=== PATIENT | female | born 1990 | race Caucasian/White ===

== ENCOUNTER → 2017-06-15 | Outpatient (CLI) | payer MEDICAID, SELFPAY | PROVIDERS: Visit Provider Nurse Practitioner Family | DX: E03.9 Hypothyroidism, unspecified (principal); E55.9 Vitamin D deficiency, unspecified | CPT/HCPCS: 36415; 80053; 82306; 84443; 85025 ==

== ENCOUNTER → 2017-12-13 07:43 | Outpatient (CLI) | payer MEDICAID, SELFPAY ==
[2017-12-13 10:58] LABS: Alanine Aminotransferase 21 U/L (12-78); Albumin Level 3.6 gm/dL (3.4-5.0); Alkaline Phosphatase 81 U/L (46-116); Anion Gap 10.3 mEq/L (5-15); Aspartate Amino Transferase 21 U/L (15-37); Bilirubin,Total 0.3 mg/dL (0.2-1.0); Blood Urea Nitrogen 9 mg/dL (7-18); Calcium 8.4 mg/dL (8.5-10.1); Carbon Dioxide 28 mmol/L (21.0-32.0); Chloride 107 mmol/L (98-107); Chol/HDL Ratio 3.7 (1-3.5); Cholesterol 183 mg/dL (140-200); Creatinine,Serum 0.72 mg/dL (0.55-1.02); Estimated Glomerular Filt Rate 96 ml/min (>60); Free T4 (Free Thyroxine) 1.13 ng/dl (0.76-1.46); GFR (African American) 116 ML/MIN (>60); Globulin 3.7 gm/dl (1.3-3.2); Glucose 96 mg/dL (74-106); HDL Cholesterol 49 mg/dL (29-89); LDL Cholesterol 97 mg/dL (0-130); Potassium 4.3 mmoL/L (3.5-5.1); Sodium 141 mmol/L (136-145); Total Protein,Serum 7.3 gm/dL (6.4-8.2); Triglycerides 185 mg/dL (30-200); VLDL Cholesterol 37 mg/dL (0-40)
[2017-12-14 13:57] LABS: Vitamin D 25 Hydroxy 50.4 ng/mL (30.0-100.0)
== END ==
PROVIDERS: Visit Provider Internal Medicine Adolescent Medicine
DX: E03.9 Hypothyroidism, unspecified (principal); E55.9 Vitamin D deficiency, unspecified; Z86.39 Personal history of other endocrine, nutritional and metabolic disease
CPT/HCPCS: 36415; 80053; 80061; 82652; 84439; 84443

== ENCOUNTER → 2018-08-20 16:16 | Outpatient (CLI) | payer OTHER, MEDICAID, SELFPAY ==
[2018-08-20 17:41] LABS: Thyroid Stimulating Hormone 2.13 uIU/ml (0.358-3.740)
[2018-08-22 14:39] LABS: Vitamin D 25 Hydroxy 23.4 ng/mL (30.0-100.0)
== END ==
PROVIDERS: Visit Provider Nurse Practitioner Family
DX: E03.9 Hypothyroidism, unspecified (principal); E55.9 Vitamin D deficiency, unspecified
CPT/HCPCS: 36415; 82652; 84443

== ENCOUNTER → 2018-11-17 10:17 | Outpatient (CLI) | payer OTHER, MEDICAID, SELFPAY ==
--- NOTE | 2018-11-17 10:33 | XR_ITS ---
XR knee RT 3V HISTORY: ITS.REASON: pain ORDERING PHYSICIAN: Devin Beckett MD PATIENT AGE: 28 years COMPARISON: None FINDINGS: No fracture or dislocation. No lytic or blastic change. Normal mineralization. No significant arthritic changes evident. No other significant findings IMPRESSION: Negative Knee
== END ==
PROVIDERS: PCP Nurse Practitioner Family; Visit Provider Internal Medicine Adolescent Medicine
DX: M25.561 Pain in right knee (principal)
CPT/HCPCS: 73562

== ENCOUNTER → 2019-02-13 09:48 | Outpatient (CLI) | payer OTHER, MEDICAID, SELFPAY ==
[2019-02-13 10:23] LABS: Basophils # 0.1 K/mm3 (0-0.2); Basophils % 0.9 % (0.1-2.0); Eosinophils # 0.2 K/mm3 (0.0-0.4); Eosinophils % 2.8 % (0.1-12.0); Hematocrit 36.2 % (37.0-47.0); Hemoglobin 11.7 g/dL (12.2-16.2); Lymphocytes # 1.6 K/mm3 (0.7-4.5); Lymphocytes % 28.6 % (10-50); Mean Corpuscular HGB Conc 32.3 g/dL (31.8-35.4); Mean Corpuscular Hemoglobin 25.7 pg (27.0-31.2); Mean Corpuscular Volume 79.6 fl (81-99); Mean Platelet Volume 7.7 fl (7.4-10.4); Monocytes # 0.3 K/mm3 (0.1-1.0); Neutrophils # 3.4 K/mm3 (1.8-7.8); Neutrophils % 61.8 % (37.0-80.0); Platelet Count 225 K/mm3 (142-424); Red Blood Count 4.55 M/mm3 (4.20-5.40); Red Cell Distribution Width 15.5 % (11.5-17.5); White Blood Count 5.4 K/mm3 (4.8-10.8)
[2019-02-13 12:35] LABS: Alanine Aminotransferase 19 U/L (12-78); Albumin Level 3.4 gm/dL (3.4-5.0); Alkaline Phosphatase 86 U/L (46-116); Anion Gap 11.6 mEq/L (5-15); Aspartate Amino Transferase 16 U/L (15-37); Bilirubin,Total 0.3 mg/dL (0.2-1.0); Blood Urea Nitrogen 9 mg/dL (7-18); Calcium 8.6 mg/dL (8.5-10.1); Carbon Dioxide 27 mmol/L (21.0-32.0); Chloride 104 mmol/L (98-107); Chol/HDL Ratio 4.3 (1-3.5); Cholesterol 166 mg/dL (140-200); Creatinine,Serum 0.77 mg/dL (0.55-1.02); Estimated Glomerular Filt Rate 87 ml/min (>60); Free T4 (Free Thyroxine) 1.09 ng/dl (0.76-1.46); GFR (African American) 106 ML/MIN (>60); Globulin 3.5 gm/dl (1.3-3.2); Glucose 85 mg/dL (74-106); HDL Cholesterol 39 mg/dL (29-89); LDL Cholesterol 69 mg/dL (0-130); Potassium 4.6 mmoL/L (3.5-5.1); Sodium 138 mmol/L (136-145); Thyroid Stimulating Hormone 4.74 uIU/ml (0.358-3.740); Total Protein,Serum 6.9 gm/dL (6.4-8.2); Triglycerides 290 mg/dL (30-200); VLDL Cholesterol 58 mg/dL (0-40)
[2019-02-14 12:37] LABS: Vitamin B12 463 pg/mL (232-1245); Vitamin D 25 Hydroxy 34.4 ng/mL (30.0-100.0)
== END ==
PROVIDERS: Visit Provider Nurse Practitioner Family
DX: E03.9 Hypothyroidism, unspecified (principal); E78.1 Pure hyperglyceridemia; E55.9 Vitamin D deficiency, unspecified; R42 Dizziness and giddiness
CPT/HCPCS: 36415; 80053; 80061; 82607; 82652; 84439; 84443; 85025

== ENCOUNTER → 2019-05-24 09:55 | Outpatient (CLI) | payer OTHER, SELFPAY ==
[2019-05-24 10:46] LABS: Basophils # 0.1 K/mm3 (0-0.2); Basophils % 1.1 % (0.1-2.0); Eosinophils # 0.2 K/mm3 (0.0-0.4); Eosinophils % 2.7 % (0.1-12.0); Hematocrit 40.1 % (37.0-47.0); Hemoglobin 13.1 g/dL (12.2-16.2); Lymphocytes # 1.8 K/mm3 (0.7-4.5); Lymphocytes % 28.3 % (10-50); Mean Corpuscular HGB Conc 32.7 g/dL (31.8-35.4); Mean Corpuscular Hemoglobin 26.9 pg (27.0-31.2); Mean Corpuscular Volume 82.3 fl (81-99); Mean Platelet Volume 8.6 fl (7.4-10.4); Monocytes # 0.3 K/mm3 (0.1-1.0); Monocytes % 4.5 % (1.7-9.3); Neutrophils # 4.1 K/mm3 (1.8-7.8); Neutrophils % 63.4 % (37.0-80.0); Platelet Count 205 K/mm3 (142-424); Red Blood Count 4.87 M/mm3 (4.20-5.40); Red Cell Distribution Width 14.3 % (11.5-17.5); White Blood Count 6.5 K/mm3 (4.8-10.8)
[2019-05-24 11:40] LABS: Free T4 (Free Thyroxine) 1.08 ng/dl (0.76-1.46); Thyroid Stimulating Hormone 2.47 uIU/ml (0.358-3.740)
== END ==
PROVIDERS: Visit Provider Nurse Practitioner Family
DX: E03.9 Hypothyroidism, unspecified (principal); D50.9 Iron deficiency anemia, unspecified
CPT/HCPCS: 36415; 84439; 84443; 85025

== ENCOUNTER → 2019-10-21 09:31 | Outpatient (CLI) | payer OTHER, SELFPAY ==
[2019-10-21 11:53] LABS: HCG,Quantitative 225 mIU/ml (0-5.42)
== END ==
PROVIDERS: Visit Provider Nurse Practitioner Obstetrics & Gynecology
DX: N92.6 Irregular menstruation, unspecified (principal)
CPT/HCPCS: 36415; 84702

== ENCOUNTER → 2019-11-04 09:47 | Outpatient (CLI) | payer OTHER, SELFPAY ==
[2019-11-04 11:49] LABS: HCG,Quantitative 18817 mIU/ml (0-5.42)
== END ==
PROVIDERS: Visit Provider Nurse Practitioner Obstetrics & Gynecology
DX: Z32.00 Encounter for pregnancy test, result unknown (principal)
CPT/HCPCS: 36415; 84702

== ENCOUNTER → 2019-11-19 15:25 | Outpatient (CLI) | payer OTHER, SELFPAY ==
[2019-11-19 16:09] LABS: Basophils % 0.3 % (0.1-2.0); Eosinophils # 0.1 K/mm3 (0.0-0.4); Eosinophils % 1.7 % (0.1-12.0); Hematocrit 38.2 % (37.0-47.0); Hemoglobin 13.4 g/dL (12.2-16.2); Lymphocytes # 1.7 K/mm3 (0.7-4.5); Lymphocytes % 19.8 % (10-50); Mean Corpuscular Volume 85.8 fl (81-99); Monocytes # 0.4 K/mm3 (0.1-1.0); Monocytes % 4.2 % (1.7-9.3); Neutrophils # 6.3 K/mm3 (1.8-7.8); Platelet Count 205 K/mm3 (142-424); Red Blood Count 4.45 M/mm3 (4.20-5.40); Red Cell Distribution Width 13.7 % (11.5-17.5); White Blood Count 8.5 K/mm3 (4.8-10.8)
[2019-11-21 09:59] LABS: HIV Screen 4th Generation wRfx Non Reactive (Non Reactive); Hepatitis B Surface Antigen Negative (Negative); Hepatitis C Antibody 0.1 s/co ratio (0.0-0.9); Rubella Antibodies, IgG 4.14 index (Immune >0.99)
[2019-11-21 10:47] LABS: Rapid Plasma Reagin Ab Titer Non Reactive (NonRea<1:1)
== END ==
PROVIDERS: Visit Provider Nurse Practitioner Obstetrics & Gynecology
DX: Z34.90 Encounter for supervision of normal pregnancy, unspecified, unspecified trimester (principal); E03.9 Hypothyroidism, unspecified; K21.9 Gastro-esophageal reflux disease without esophagitis
CPT/HCPCS: 36415; 85025; 86592; 86703; 86762; 86850; 87340; 87380; G0432

== ENCOUNTER → 2019-11-22 14:29 | Outpatient (CLI) | payer OTHER, SELFPAY ==
--- NOTE | 2019-11-22 14:29 | US_ITS ---
PROCEDURE: US OB TRANSVAGINAL CLINICAL INDICATION: for dates Evaluate early gestational age, spotting COMPARISON: PTV US PELVIS-TRANSVAGINAL ONLY from 03/07/2014 FINDINGS: An intrauterine gestational sac is present with a pole with a crown-rump length of 2.09cm correlating to gestational age of 8weeks 5days. heart tones are present with an FHR of 179bpm. Yolk sac is noted. The adnexa have an unremarkable appearance. The amnion and chorion have not yet fused IMPRESSION: Live IUP at 8 weeks 5 days Estimated due date by Ultrasound is 06/28/2020 Dictated by: Gumaro Arambula MD 11/22/2019 17:06 Electronically signed by Gumaro Arambula MD in [place] 11/22/2019 17:06
== END ==
LOC: RAD 14:29
PROVIDERS: PCP Nurse Practitioner Family; Visit Provider Nurse Practitioner Obstetrics & Gynecology
DX: Z34.90 Encounter for supervision of normal pregnancy, unspecified, unspecified trimester (principal)
CPT/HCPCS: 76817

== ENCOUNTER 2019-12-25 15:06 | Emergency (ER) | payer OTHER, SELFPAY ==
[2019-12-25 15:21] VITALS: BP 141/98; PULSE 106; RESP 20; TEMP 36.6; O2SAT 100; BMI 35.4
--- NOTE | 2019-12-25 15:29 | HMH.EDUTC ---
[facility] Disposition Clinical Impression: Sinusitis Qualifiers: Sinusitis location: unspecified location Chronicity: acute Recurrence: non-recurrent Qualified Code(s): J01.90 - Acute sinusitis, unspecified Qualifiers: Weeks of gestation: 14 weeks Qualified Code(s): Z3A.14 - 14 weeks gestation of Disposition: Home, Self-Care Condition on Discharge: Good Instructions: Sinusitis, Diet, DI for Sinusitis Additional Instructions: Drink plenty of fluids. Take tylenol for pain or fever. Take the medications as directed. Follow up with your regular doctor. GO TO THE ER FOR ANY WORSENING SYMPTOMS Follow up with your ob doctor. Prescriptions: Azithromycin [Z-Eduardo 250mg Tab*] 250 mg PO UD DOSE PK #6 tab [facility] Referrals: Dona Baez APRN [Primary Care Provider] - Forms: Work/School Release Time of Disposition: 15:34 Medical Decision Making - Medical Records Medical records reviewed: No: I reviewed the patient's medical records. - Rolando Inquiry Pt receiving controlled substance: No Vital Signs: 12/25/19 15:21 12/25/19 16:02 Temperature 97.9 F 98.2 F Temperature Source Oral Oral Pulse Rate 98 H Pulse Rate [Left Brachial] 106 H Respiratory Rate 20 16 Blood Pressure 140/70 Blood Pressure [Left Arm] 141/98 H Blood Pressure Mean [Left Arm] 112 Blood Pressure Source Automatic Cuff Blood Pressure Source [Left Arm] Automatic Cuff Blood Pressure Position Sitting Blood Pressure Position [Left Arm] Sitting 02 Sat by Pulse Oximetry 100 Oxygen Delivery Method Room Air [facility] HPI - General Stated complaint: possible sinus infection 14 weeks Time Seen by Provider: 12/25/19 15:29 HEENT Symptoms (Recalled from RN notes): Yes Resp Symptoms (Recalled from RN notes): Yes Skin Symptoms (Recalled from RN notes): No MS Symptoms (Recalled from RN notes): No Functional Status (Recalled from RN notes): NA - History of Present Illness Provider Complaint: She c/o sinus congestion, sinus pressure, bilateral ear pain for the past 6 days. She denies any fever or chills. She is 14 weeks . - Related Data Home Medications Medication Instructions Recorded Confirmed omeprazole 20 mg capsule,delayed 20 mg PO ONCE 08/24/17 12/16/19 release levothyroxine 100 mcg tablet PO 11/18/19 12/16/19 meloxicam 7.5 mg tablet PO 11/18/19 12/16/19 prenat.vits,dulce,nlv-kbvz-apcmw 1 tab PO DAILY 11/18/19 12/16/19 triamcinolone acetonide 0.1 % TOPICAL 11/18/19 12/16/19 topical cream Previous Rx's Medication Instructions Recorded Azithromycin [Z-Eduardo 250mg Tab*] 250 mg PO UD DOSE PK #6 tab 12/25/19 Allergies Allergy/AdvReac Type Severity Reaction Status Date / Time oxycodone [From Percocet] Allergy Intermediate I-ITCHING Verified 12/16/19 15:19 - Worker's Comp Is this a Worker's Comp case?: No Is this an [facility] Worker's Comp?: No Is this a [place] Worker's Comp?: No [facility] History - Hepatitis A Screen Drug use history?: No High risk sexual behaviors?: No History of sexually transmitted infection?: No Currently employed?: No Childcare worker?: No Do you have indoor plumbing?: Yes Do you have electricity?: Yes Attestation statement:: This patient has been screened for Hepatitis A risk factors. I have reviewed the patient's past medical history: Yes Medical History: Reports:: Gastroesophageal Reflux Disease(GERD) Other Medical History: Reports: Hypothyroidism, Thyroid Disease, Other Comment: PCOS. GERD. HYPOTHYROIDISM Other Surgeries: Yes: Cholecystectomy Amputation: No Fractures: No Comment: BREAST REDUCTION--2003. WISDOM TEETH REMOVAL--2011. LAP. CHOLY--2014 - Social History Smoking Status: Never smoker Alcohol Intake: never Alcohol Intake Frequency:: other Substance Use Type: denies use Occupational Status: employed Family Hx:: Cancer, Diabetes, Hypertension, Coronary Artery Diseas
[2019-12-25 16:02] VITALS: BP 140/70; PULSE 98; RESP 16; TEMP 36.8; O2SAT 98
== END 2019-12-25 16:03 | disposition home or self-care (01) ==
PROVIDERS: Emergency Provider Nurse Practitioner Family; PCP Nurse Practitioner Family
DX: J01.90 Acute sinusitis, unspecified (principal); Z3A.14 14 weeks gestation of pregnancy; K21.9 Gastro-esophageal reflux disease without esophagitis; Z88.5 Allergy status to narcotic agent
CPT/HCPCS: 99201

== ENCOUNTER → 2020-01-21 15:02 | Outpatient (CLI) | payer OTHER, SELFPAY ==
[2020-01-21 15:51] LABS: Chloride 104 mmol/L (98-107); Potassium 3.4 mmoL/L (3.5-5.1); Sodium 137 mmol/L (136-145)
[2020-01-21 15:53] LABS: Blood Urea Nitrogen 7 mg/dl (7-17); Estimated Glomerular Filt Rate 144 ml/min (>60); GFR (African American) 174 ML/MIN (>60)
[2020-01-21 15:54] LABS: Alanine Aminotransferase 12 U/L (12-78); Albumin Level 3.4 g/dl (3.5-5.0); Albumin/Globulin Ratio 1.1 (1.1-1.8); Alkaline Phosphatase 86 U/L (38-126); Anion Gap 12.4 mEq/L (5-15); Aspartate Amino Transferase 19 U/L (14-36); Bilirubin,Total 0.3 mg/dl (0.2-1.3); Calcium 9.1 mg/dl (8.4-10.2); Carbon Dioxide 24 mmol/L (22.0-30.0); Chol/HDL Ratio 2.5 (1-3.5); Cholesterol 183 mg/dl (140-200); Glucose 92 mg/dl (74-100); HDL Cholesterol 72 mg/dl (40-60); Total Protein,Serum 6.4 g/dl (6.3-8.2); Triglycerides 299 mg/dl (30-150); VLDL Cholesterol 60 mg/dL (0-40)
[2020-01-21 16:05] LABS: Direct LDL Cholesterol 83.71 mg/dL (100-129)
[2020-01-21 16:14] LABS: 25-OH Vitamin D, Total 31.6 ng/mL (30-100); Free Thyroxine Index 3.3 ug/dL (5.93-13.13); T4 (Thyroxine) 16.5 ug/dl (5.53-11.0); Triiodothryronine (T3) Uptake 20 % (23.5-40.5)
[2020-01-21 16:21] LABS: Basophils % 0.3 % (0.1-2.0); Eosinophils # 0.2 K/mm3 (0.0-0.4); Eosinophils % 2.1 % (0.1-12.0); Hematocrit 35.9 % (37.0-47.0); Hemoglobin 12.6 g/dL (12.2-16.2); Lymphocytes # 1.7 K/mm3 (0.7-4.5); Lymphocytes % 17.5 % (10-50); Mean Corpuscular HGB Conc 35.1 g/dL (31.8-35.4); Mean Corpuscular Hemoglobin 30.7 pg (27.0-31.2); Mean Corpuscular Volume 87.4 fl (81-99); Mean Platelet Volume 8.7 fl (7.4-10.4); Monocytes # 0.4 K/mm3 (0.1-1.0); Monocytes % 4.2 % (1.7-9.3); Neutrophils # 7.4 K/mm3 (1.8-7.8); Neutrophils % 75.8 % (37.0-80.0); Platelet Count 173 K/mm3 (142-424); Red Blood Count 4.11 M/mm3 (4.20-5.40); Red Cell Distribution Width 14.5 % (11.5-17.5); White Blood Count 9.8 K/mm3 (4.8-10.8)
[2020-01-21 16:27] LABS: Thyroid Stimulating Hormone 2.81 uIU/mL (0.465-4.68)
[2020-01-21 16:59] LABS: Hemoglobin A1C 5.1 % (4.0-6.0)
== END ==
PROVIDERS: Visit Provider Internal Medicine Adolescent Medicine
DX: E78.1 Pure hyperglyceridemia (principal); E66.9 Obesity, unspecified; E55.9 Vitamin D deficiency, unspecified; Z86.39 Personal history of other endocrine, nutritional and metabolic disease
CPT/HCPCS: 36415; 80053; 80061; 82306; 83036; 84436; 84443; 84479; 85025

== ENCOUNTER → 2020-02-11 10:31 | Outpatient (CLI) | payer OTHER, SELFPAY ==
--- NOTE | 2020-02-11 10:34 | US_ITS ---
PROCEDURE: US OB /MATERNAL DETAIL CLINICAL INDICATION: 20 week gestation Johan in the exam COMPARISON: US US OB TRANSVAGINAL from 11/22/2019 FINDINGS: There is a single live fetus which is in cephalic presentation. heart body motion noted. Cervix is closed and measures 4.5 cm transabdominal. The placenta is anterior and grade 1. No previa or abruption. Complete survey performed and was unremarkable on the submitted images as in PACS. No discrete anomalies identified on survey imaging by technologist. Active fetus. Three-vessel cord with satisfactory umbilical cord insertion. 4- chamber heart noted. Survey of brain & ventricles Unremarkable. Face and neck survey unremarkable. Diaphragm and chest views unremarkable. Abdomen: Both kidneys noted and unremarkable. Stomach noted and satisfactory. Spine: Survey of the spine satisfactory with no anomalies identified nor imaged. Both arms and legs noted. Amniotic Fluid: Adequate. Maternal adnexa: No significant findings. Measurements: Average ultrasound age 20weeks 3days. Gestational Age 20weeks 2days Estimated due date by ultrasound age 0106/27/2020. Estimated weight 348g BPD = 20weeks 3days OFD = 21weeks 4days HC = 20weeks 3days AC = 20weeks FL = 20weeks 6days Growth Percentile= 49Percent% Heart Rate = 132bpm Cerebellum = 20weeks 2days Humerus = 20weeks 5days HC/AC is 1.22 CI is 0.73 FL/BPD is 0.72 FL/AC is 0.23 IMPRESSION: Live IUP an average ultrasound age of 20 weeks and 3 days. All parameters correlate with no obvious anomalies. Please see above for detail Dictated by: Gumaro Arambula MD 02/12/2020 06:19 Gumaro Arambula MD in [place] 02/12/2020 06:19
== END ==
PROVIDERS: PCP Internal Medicine Adolescent Medicine; Visit Provider Nurse Practitioner Obstetrics & Gynecology
DX: Z3A.20 20 weeks gestation of pregnancy (principal)
CPT/HCPCS: 76811

== ENCOUNTER → 2020-03-16 16:50 | Outpatient (CLI) | payer OTHER, SELFPAY ==
[2020-03-16 17:02] LABS: Basophils % 0.4 % (0.1-2.0); Eosinophils # 0.5 K/mm3 (0.0-0.4); Eosinophils % 4.7 % (0.1-12.0); Hematocrit 35.9 % (37.0-47.0); Hemoglobin 11.7 g/dL (12.2-16.2); Lymphocytes # 1.6 K/mm3 (0.7-4.5); Lymphocytes % 15.2 % (10-50); Mean Corpuscular HGB Conc 32.7 g/dL (31.8-35.4); Mean Corpuscular Hemoglobin 29.7 pg (27.0-31.2); Mean Corpuscular Volume 90.8 fl (81-99); Mean Platelet Volume 7.9 fl (7.4-10.4); Monocytes # 0.4 K/mm3 (0.1-1.0); Monocytes % 4.2 % (1.7-9.3); Neutrophils # 7.8 K/mm3 (1.8-7.8); Neutrophils % 75.5 % (37.0-80.0); Platelet Count 195 K/mm3 (142-424); Red Blood Count 3.96 M/mm3 (4.20-5.40); Red Cell Distribution Width 13.7 % (11.5-17.5); White Blood Count 10.3 K/mm3 (4.8-10.8)
[2020-03-16 17:46] LABS: Chloride 106 mmol/L (98-107); Potassium 4.1 mmoL/L (3.5-5.1); Sodium 138 mmol/L (136-145)
[2020-03-16 17:49] LABS: Blood Urea Nitrogen 10 mg/dl (7-17); Estimated Glomerular Filt Rate 116 ml/min (>60); GFR (African American) 140 ML/MIN (>60)
[2020-03-16 17:50] LABS: Anion Gap 12.1 mEq/L (5-15); Calcium 9.2 mg/dl (8.4-10.2); Carbon Dioxide 24 mmol/L (22.0-30.0); Glucose 111 mg/dl (74-100)
[2020-03-16 18:07] LABS: Free T4 (Free Thyroxine) 0.83 ng/dl (0.78-2.19)
== END ==
PROVIDERS: Visit Provider Nurse Practitioner Family
DX: E03.9 Hypothyroidism, unspecified (principal)
CPT/HCPCS: 36415; 80048; 84439; 84443; 85025

== ENCOUNTER → 2020-03-24 07:56 | Outpatient (CLI) | payer OTHER, SELFPAY ==
[2020-03-24 08:22] LABS: Glucose,Fasting 94 mg/dl (74-100)
[2020-03-24 21:05] LABS: Glucose 1 Hour 90 mg/dL (74-100)
== END ==
PROVIDERS: Visit Provider Nurse Practitioner Obstetrics & Gynecology
DX: Z34.90 Encounter for supervision of normal pregnancy, unspecified, unspecified trimester (principal)
CPT/HCPCS: 36415; 82951

== ENCOUNTER → 2020-04-14 15:51 | Outpatient (CLI) | payer OTHER, SELFPAY ==
[2020-04-14 16:04] LABS: Basophils % 0.2 % (0.1-2.0); Eosinophils # 0.2 K/mm3 (0.0-0.4); Eosinophils % 1.6 % (0.1-12.0); Hematocrit 33.6 % (37.0-47.0); Lymphocytes # 1.5 K/mm3 (0.7-4.5); Lymphocytes % 15.3 % (10-50); Mean Corpuscular HGB Conc 32.8 g/dL (31.8-35.4); Mean Corpuscular Volume 88.6 fl (81-99); Mean Platelet Volume 9.1 fl (7.4-10.4); Monocytes # 0.5 K/mm3 (0.1-1.0); Monocytes % 4.8 % (1.7-9.3); Neutrophils # 7.4 K/mm3 (1.8-7.8); Platelet Count 171 K/mm3 (142-424); Red Cell Distribution Width 14.3 % (11.5-17.5); White Blood Count 9.5 K/mm3 (4.8-10.8)
[2020-04-14 16:59] LABS: Chloride 106 mmol/L (98-107); Sodium 136 mmol/L (136-145)
[2020-04-14 17:00] LABS: Potassium 4.4 mmoL/L (3.5-5.1)
[2020-04-14 17:02] LABS: Blood Urea Nitrogen 9 mg/dl (7-17); Estimated Glomerular Filt Rate 97 ml/min (>60); GFR (African American) 117 ML/MIN (>60)
[2020-04-14 17:03] LABS: Anion Gap 11.4 mEq/L (5-15); Calcium 8.8 mg/dl (8.4-10.2); Carbon Dioxide 23 mmol/L (22.0-30.0); Glucose 71 mg/dl (74-100)
[2020-04-14 17:10] LABS: NT Pro Brain Natriuretic Pep. 63.8 pg/mL (0-125)
== END ==
PROVIDERS: Visit Provider Nurse Practitioner Obstetrics & Gynecology
DX: Z34.90 Encounter for supervision of normal pregnancy, unspecified, unspecified trimester (principal)
CPT/HCPCS: 36415; 80048; 83880; 85025

== ENCOUNTER → 2020-05-06 13:45 | Outpatient (CLI) | payer OTHER, SELFPAY ==
--- NOTE | 2020-05-06 13:45 | US_ITS ---
PROCEDURE: US OB /MATERNAL DETAIL CLINICAL INDICATION: LGA Large for gestational COMPARISON: US US OB /MATERNAL DETAIL from 02/11/2020 FINDINGS: There is a single live fetus present. Initially the fetus was in breech presentation but turned during the exam to B in cephalic presentation. The cervix is closed measuring 4.5 cm. There is an average amount of amniotic fluid with an INDRA of 14 cm. The placenta is anterior and grade 1. No evidence of previa or abruption. Biophysical profile is 8 of 8 Measurements: Average ultrasound age 32weeks 3days. Gestational Age 32weeks 3days Estimated due date by ultrasound age 0106/28/2020. Estimated weight 1,861g BPD = 33weeks 3days OFD = 32weeks 2days HC = 32weeks 4days AC = 31weeks 3days FL = 32weeks 1day Growth Percentile= 24Percent% Heart Rate = 143bpm HC/AC is 1.08 CI is 0.8 FL/BPD is 0.75 FL/AC is 0.23 IMPRESSION: Live IUP in cephalic presentation with an average ultrasound age of 32 weeks 3 days and an estimated weight 1861 g which is 24th percentile Normal amniotic fluid volume with an INDRA of 14 cm. Biophysical profile 8 of 8 Dictated by: Gumaro Arambula MD 05/07/2020 10:16 Gumaro Arambula MD in [place] 05/07/2020 10:16
== END ==
PROVIDERS: PCP Nurse Practitioner Family; Visit Provider Nurse Practitioner Obstetrics & Gynecology
DX: O36.60X0 Maternal care for excessive fetal growth, unspecified trimester, not applicable or unspecified (principal)
CPT/HCPCS: 76811; 76819

== ENCOUNTER → 2020-05-25 17:55 | Outpatient (CLI) | payer OTHER, SELFPAY ==
[2020-05-25 17:57] LABS: Microscopic, Urine URINE MICROSCOPIC (MICROSCOPIC)
[2020-05-25 18:51] LABS: Appearance,Urine CLEAR (Clear); Blood, Urine Negative (Negative); Color,Urine YELLOW (Yellow); Glucose,Urine (UA) Negative (Negative); Ketones,Urine TRACE (Negative); Leukocyte Esterase,Urine Negative (Negative); Nitrate,Urine Negative (Negative); PH,Urine 5.5 (5.0-8.5); Protein,Urine Negative (Negative); Specific Gravity, Urine >= 1.030 (1.005-1.030); Urobilinogen,Urine 0.2 EU/dl (0.2)
[2020-05-25 18:52] LABS: Bilirubin,Urine Negative (Negative)
[2020-05-25 19:28] LABS: Calcium Oxalate Crystals,Urine 2+ /lpf
== END ==
PROVIDERS: Visit Provider Nurse Practitioner Obstetrics & Gynecology
DX: Z34.90 Encounter for supervision of normal pregnancy, unspecified, unspecified trimester (principal)
CPT/HCPCS: 81001; 86403

== ENCOUNTER 2020-05-29 09:41 | Outpatient (CLI) | payer OTHER, SELFPAY ==
[2020-05-29 09:59] VITALS: BMI 38.0
[2020-05-29 10:24] LABS: Microscopic, Urine URINE MICROSCOPIC (MICROSCOPIC)
[2020-05-29 10:27] LABS: Appearance,Urine CLEAR (Clear); Bilirubin,Urine Negative (Negative); Blood, Urine Negative (Negative); Color,Urine YELLOW (Yellow); Glucose,Urine (UA) Negative (Negative); Ketones,Urine Negative (Negative); Leukocyte Esterase,Urine Negative (Negative); Nitrate,Urine Negative (Negative); PH,Urine 5.5 (5.0-8.5); Protein,Urine Negative (Negative); Specific Gravity, Urine >= 1.030 (1.005-1.030); Urobilinogen,Urine 0.2 EU/dl (0.2)
--- NOTE | 2020-05-29 10:31 | US_ITS ---
PROCEDURE: US OB BIOPHYSICAL PROFILE CLINICAL INDICATION: decreased movment TECHNIQUE: FINDINGS: The following parameters are obtained: Average ultrasound age is Average 35weeks 3days Estimated due date by ultrasound is 06/30/2020. Estimated weight is 2,708g. BPD 35 weeks 3 days, OFD 35 weeks 4 days, HC 35 weeks 0 days, AC 36 weeks 2 days, FL 34 weeks 5 days. Average ultrasound age is 35 weeks 3 days. The estimated weight is 2708 g which is 45th percentile. heart rate: 128bpm bpm. HC/AC: 0.97 Cephalic index: 0.8 FL/BPD: 0.77 FL/AC: 0.21 Amniotic fluid index: 13.01cm Qualitative AFV: 2 breathing movements: 2 Gross body movements: 2 Tone: 2 Biophysical profile score: 8 The cervix is closed measuring 5 cm transabdominal. Fetus is in cephalic presentation the placenta is anterior and grade 1 IMPRESSION: Live IUP at 35 weeks 3 days. Please see above for detail Dictated by: Gumaro Arambula MD 05/29/2020 14:02 Gumaro Arambula MD in [place] 05/29/2020 14:02
[2020-05-29 10:39] LABS: Amphetamine/Metha Screen,Urine Negative ng/ml (<1000); Barbiturates Screen,Urine Negative ng/ml (<200)
[2020-05-29 10:40] LABS: Benzodiazepines Screen,Urine Negative ng/ml (<200)
[2020-05-29 10:41] LABS: Cannabinoid Screen,Urine Negative ng/ml (<50); Cocaine Screen,Urine Negative ng/ml (<300)
[2020-05-29 10:42] LABS: Methadone Screen,Urine Negative ng/ml (<300); Opiate Screen,Urine Negative ng/ml (<300)
[2020-05-29 10:43] LABS: Phencyclidine Screen,Urine Negative ng/ml (<25)
[2020-05-29 10:45] LABS: RBC,Urine Occasional #/hpf (0-3); Squamous Epithelial Cell,Urine Occasional #/hpf (0-5)
[2020-05-29 10:55] VITALS: BP 136/88; PULSE 89; RESP 16; TEMP 36.7; O2SAT 96; BMI 38.0
== END 2020-05-29 11:10 | disposition home or self-care (01) ==
LOC: OBOUT 09:42 → OB 09:43
PROVIDERS: PCP Internal Medicine Adolescent Medicine; Visit Provider Nurse Practitioner Obstetrics & Gynecology
DX: O36.8130 Decreased fetal movements, third trimester, not applicable or unspecified (principal); Z3A.35 35 weeks gestation of pregnancy
CPT/HCPCS: 59025; 76816; 76819; 80305; 81001; G0463

== ENCOUNTER → 2020-06-01 17:45 | Outpatient (CLI) | payer OTHER, SELFPAY ==
[2020-06-01 17:48] LABS: Microscopic, Urine URINE MICROSCOPIC (MICROSCOPIC)
[2020-06-01 18:15] LABS: Appearance,Urine CLEAR (Clear); Bilirubin,Urine Negative (Negative); Blood, Urine Negative (Negative); Color,Urine YELLOW (Yellow); Glucose,Urine (UA) Negative (Negative); Ketones,Urine Negative (Negative); Leukocyte Esterase,Urine Negative (Negative); Nitrate,Urine Negative (Negative); Protein,Urine Negative (Negative); Specific Gravity, Urine >= 1.030 (1.005-1.030); Urobilinogen,Urine 0.2 EU/dl (0.2)
[2020-06-01 18:56] LABS: Bacteria,Urine 2+ /lpf
== END ==
LOC: LAB 17:46 → LAB.DROPOF 06-02 08:27
PROVIDERS: Visit Provider Nurse Practitioner Obstetrics & Gynecology
DX: Z34.90 Encounter for supervision of normal pregnancy, unspecified, unspecified trimester (principal)
CPT/HCPCS: 81001; 87086

== ENCOUNTER → 2020-06-09 15:00 | Outpatient (CLI) | payer OTHER, SELFPAY ==
--- NOTE | 2020-06-09 15:01 | US_ITS ---
PROCEDURE: US OB FOLLOW UP CLINICAL INDICATION: Check Positioning COMPARISON: US US OB BIOPHYSICAL PROFILE from 05/29/2020 FINDINGS: There is cephalic presentation of a single live fetus. Cervix appears closed and measures 5 cm in length. heart tones are present 140 beats per minute. Placenta is anterior. The INDRA is 14 cm. Average ultrasound age is 36 weeks 6 days. Estimated weight is 2980 g which is 39th percentile. Biophysical profile is 8 of 8. Measurements: Average ultrasound age 36weeks 6days. Gestational Age 36weeks 6days Estimated due date by ultrasound age 0107/01/2020. Estimated weight 2,980g BPD = 37weeks 2days OFD = 37 weeks 2 days HC = 36weeks 3days AC = 36weeks 2days FL = 37weeks 2days Growth Percentile= 36Percent% Heart Rate = 140bpm Cerebellum = Humerus = HC/AC is 1 CI is 0.82 FL/BPD is 0.79 FL/AC is 0.23 IMPRESSION: Live IUP in cephalic presentation at 36 weeks 6 days. Please see above for detail Biophysical profile 8 of 8 with an INDRA 14 cm Dictated by: Gumaro Arambula MD 06/09/2020 17:14 Gumaro Arambula MD in [place] 06/09/2020 17:14
== END ==
PROVIDERS: PCP Internal Medicine Adolescent Medicine; Visit Provider Nurse Practitioner Obstetrics & Gynecology
DX: Z36.89 Encounter for other specified antenatal screening (principal)
CPT/HCPCS: 76816; 76819

== ENCOUNTER 2020-06-19 12:45 | Inpatient (IN) | payer OTHER, SELFPAY ==
[2020-06-19 09:39] VITALS: BP 131/87; PULSE 88; RESP 18; TEMP 36.6; O2SAT 97; BMI 38.3
[2020-06-19 10:19] LABS: Microscopic, Urine URINE MICROSCOPIC (MICROSCOPIC)
[2020-06-19 10:37] LABS: Appearance,Urine CLEAR (Clear); Bilirubin,Urine Negative (Negative); Blood, Urine Negative (Negative); Color,Urine YELLOW (Yellow); Glucose,Urine (UA) Negative (Negative); Ketones,Urine Negative (Negative); Leukocyte Esterase,Urine Negative (Negative); Nitrate,Urine Negative (Negative); Protein,Urine Negative (Negative); Urobilinogen,Urine 0.2 EU/dl (0.2)
[2020-06-19 10:45] LABS: Bacteria,Urine 1+ /lpf
[2020-06-19 10:49] LABS: Benzodiazepines Screen,Urine Negative ng/ml (<200)
[2020-06-19 10:50] LABS: Amphetamine/Metha Screen,Urine Negative ng/ml (<1000); Barbiturates Screen,Urine Negative ng/ml (<200)
[2020-06-19 10:52] LABS: Cannabinoid Screen,Urine Negative ng/ml (<50)
[2020-06-19 10:53] LABS: Cocaine Screen,Urine Negative ng/ml (<300); Methadone Screen,Urine Negative ng/ml (<300)
[2020-06-19 10:54] LABS: Basophils % 0.4 % (0.1-2.0); Eosinophils # 0.1 K/mm3 (0.0-0.4); Eosinophils % 0.9 % (0.1-12.0); Hematocrit 39.7 % (37.0-47.0); Hemoglobin 13.6 g/dL (12.2-16.2); Lymphocytes # 1.2 K/mm3 (0.7-4.5); Mean Corpuscular HGB Conc 34.2 g/dL (31.8-35.4); Mean Corpuscular Hemoglobin 30.8 pg (27.0-31.2); Mean Platelet Volume 8.8 fl (7.4-10.4); Monocytes # 0.3 K/mm3 (0.1-1.0); Monocytes % 3.7 % (1.7-9.3); Neutrophils # 7.5 K/mm3 (1.8-7.8); Neutrophils % 81.9 % (37.0-80.0); Platelet Count 132 K/mm3 (142-424); Red Blood Count 4.41 M/mm3 (4.20-5.40); Red Cell Distribution Width 15.9 % (11.5-17.5); White Blood Count 9.1 K/mm3 (4.8-10.8)
[2020-06-19 10:54] LABS: Opiate Screen,Urine Negative ng/ml (<300)
[2020-06-19 10:55] LABS: Phencyclidine Screen,Urine Negative ng/ml (<25)
[2020-06-19 11:16] LABS: Coronavirus 19 IgG Antibody Negative (Negative); Coronavirus 19 IgM Antibody Negative (Negative)
[2020-06-19 13:01] VITALS: BP 135/84; PULSE 88; RESP 18; TEMP 36.4; O2SAT 98
--- NOTE | 2020-06-19 17:02 | HMH.OBAPHP ---
OB - H&P: HPI Antepartum - History of Present Illness Chief complaint: contractions History of present illness: 38 5/7 weeks, presented with complaint of contractions Denies vaginal bleeding or leakage of fluid; reports normal movement care with Dr. Dexter complicated by chronic hypertension and hypothyroid Medical management with labetalol and synthroid tracing reactive Cervical change noted and patient admitted with diagnosis of active labor at term [facility] History I have reviewed the patient's past medical history: Yes Medical History: Reports:: Gastroesophageal Reflux Disease(GERD), Hypertension *Have you ever received a pneumonia vaccine?: No *Have you received a flu vaccine this season?: Yes Other Medical History: Reports: Hypothyroidism, Thyroid Disease, Other Other Surgeries: Yes: Cholecystectomy. No: Amputation: No Fractures: No - *Social History Smoking Status: Never smoker Alcohol Intake: never Alcohol Intake Frequency:: other Substance Use Type: denies use *Occupational Status:: employed *Travel in the last 8 weeks: None Family Hx:: Cancer, Diabetes, Hypertension, Coronary Artery Disease Para: 1 Review of Systems - Review of Systems Review of systems:: pertinent systems reviewed and negative unless documented below - Constitutional Denies chills, Denies fever(s) - *Genitourinary Denies abnormal vaginal bleeding Comments: + contractions Meds Home Medications Medication Instructions Recorded Confirmed Type levothyroxine 100 mcg tablet 100 mcg PO DAILY 11/18/19 06/19/20 History meloxicam 7.5 mg tablet 1 tab PO DIRECTED 11/18/19 06/19/20 History prenat.vits,dulce,dni-eeta-lxndl 1 tab PO DAILY 11/18/19 06/19/20 History triamcinolone acetonide 0.1 % 1 cream TOPICAL DAILYP PRN 11/18/19 06/19/20 History topical cream Ferrous Sulfate 325 mg PO DAILY 05/29/20 06/19/20 History Labetalol HCl 200 mg PO BID 05/29/20 06/19/20 History Omeprazole 40 mg PO DAILY 05/29/20 06/19/20 History Aspirin 81 mg PO DAILY 06/19/20 06/19/20 History Allergies Allergy/AdvReac Type Severity Reaction Status Date / Time oxycodone [From Percocet] Allergy Intermediate I-ITCHING Verified 06/15/20 10:43 OB - H&P: Exam - Physical Exam Vital signs: Temp Pulse Resp BP Pulse Ox 97.6 F 88 18 135/84 98 06/19/20 13:01 06/19/20 13:01 06/19/20 13:01 06/19/20 13:01 06/19/20 13:01 - Constitutional no acute distress - Routine HEENT Exam Head: Present: normocephalic, atraumatic Eye: Absent: conjunctival icterus ENT: Present: mucous membranes moist - Routine Neck Exam Present: supple - Routine Respiratory Exam Present: CTA bilaterally. Absent: respiratory distress - Routine Cardiovascular Exam Present: RRR - Routine Abdominal Exam Present: soft. Absent: tenderness, distended - Routine Exam External: Absent: vulvar erythema Comments: cervix 3-4cm - Routine Extremities Exam Present: edema Comments: 1+ - Routine Skin Exam Absent: rash - Routine Neurological Exam Present: alert, oriented X3 - Routine Psychiatric Exam Present: normal affect OB - Results - Labs Labs: Short CBC 06/19/20 Range/Units 10:38 WBC 9.1 (4.8-10.8) K/mm3 Hgb 13.6 (12.2-16.2) g/dL Hct 39.7 (37.0-47.0) % Plt Count 132 L (142-424) K/mm3 Urine 06/19/20 Range/Units 09:37 Urine Color Yellow (Yellow) Urine Appearance Clear (Clear) Urine pH 7.0 (5.0-8.5) Ur Specific [place] 1.010 (1.005-1.030) Urine Protein Negative (Negative) Urine Glucose (UA) Negative (Negative) OB - A/P Antepartum (1) Chronic hypertension affecting Status: Acute (2) Active labor at term Status: Acute (3) 38 weeks gestation of Status: Acute - Additional Plan Additional Information:: Admitted for active labor Pitocin augmentation as needed Continuous monitoring
--- NOTE | 2020-06-19 17:15 | HMH.DN ---
- Delivery Note Delivery Date:: 06/19/20 Delivery Time:: 16:43 Anesthesia Type: None Was labor medically induced?: No Gestational age (weeks): 38 delivered prior to 39 weeks?: Yes Justification for early elective delivery:: Active Labor Infant Gender: Male at 1 minute: 9 at 5 minutes: 9 Delivery Procedure:: Spontaneous vaginal delivery of liveborn male infant over intact perineum. Delivery precipitous, with nurse attending Nuchal cord x1 reduced on perineum; no shoulder dystocia with delivery Infant placed in DELLA with mother immediately after umbilical cord clamped/cut, with standard nursing assessment performed Infant Apgars: 9 & 9 Placenta spontaneously expressed by MD and examined; noted to be complete/intact. Vulva, vagina, and cervix inspected; 1st degree laceration hemostatic and not requiring repair EBL: 300 cc All sponge/needle/instrument counts correct at conclusion of procedure Disposition: Mom/baby stable to recovery in LDRP Laceration:: vaginal Placental Delivery Description: Spontaneous
[2020-06-19 20:00] VITALS: BP 140/81; PULSE 85; RESP 16; TEMP 36.8; O2SAT 98
[2020-06-20 07:06] LABS: Hematocrit 33.6 % (37.0-47.0)
[2020-06-20 07:21] LABS: Hemoglobin 11.6 g/dL (12.2-16.2)
--- NOTE | 2020-06-20 09:18 | P.PN_ITS ---
Internal Medicine - PN: Subj *Date: 06/20/20 *Time: 09:18 ( day #1--afebrile. VS OK. BP 114/74 on labetalol 200mgm po bid..DTR's OK..bottlefeeding..fundus U-2..lochia rubra. perineum healing well..baby doing well--Impression: stable.) Exam Vital signs and Labs for Last 24 Hours: Temp Pulse Resp BP Pulse Ox 98.2 F 85 16 140/81 98 06/19/20 20:00 06/19/20 20:00 06/19/20 20:00 06/19/20 20:00 06/19/20 20:00 Laboratory Results - last 24 hr 06/19/20 09:37: Urine Color Yellow, Urine Appearance Clear, Urine pH 7.0, Ur Specific [place] 1.010, Urine Protein Negative, Urine Glucose (UA) Negative, Urine Ketones Negative, Urine Blood Negative, Urine Nitrate Negative, Urine Bilirubin Negative, Urine Urobilinogen 0.2, Ur Leukocyte Esterase Negative, Urine WBC 3-5, Ur Squamous Epith Cells 10-20, Urine Bacteria 1+ 06/19/20 09:37: Urine Opiates Screen Negative, Urine Methadone Screen Negative, Ur Barbituates Screen Negative, Ur Phencyclidine Scrn Negative, Ur Amphetamines Screen Negative, U Benzodiazepines Scrn Negative, Urine Cocaine Screen Negative, U Marijuana (THC) Screen Negative 06/19/20 10:38: WBC 9.1, RBC 4.41, Hgb 13.6, Hct 39.7, MCV 90.0, MCH 30.8, MCHC 34.2, RDW 15.9, Plt Count 132 L, MPV 8.8, Neut % (Auto) 81.9 H, Lymph % (Auto) 13.0, [place] % (Auto) 3.7, Eos % (Auto) 0.9, Baso % (Auto) 0.4, Neut # (Auto) 7.5, Lymph # (Auto) 1.2, [place] # (Auto) 0.3, Eos # (Auto) 0.1, Baso # (Auto) 0.0 06/19/20 10:38: SARS-CoV-2 IgG Ab (Rapid) Negative, SARS-CoV-2 IgM Ab (Rapid) Negative 06/19/20 10:38: Blood Type O Positive, Antibody Screen Negative 06/20/20 06:53: Hgb 11.6 L D, Hct 33.6 L I & O for Last 24 hours: Intake & Output 06/17/20 06/18/20 06/19/20 06/20/20 11:59 11:59 11:59 11:59 Weight 245 lb Assessment and Plan (1) Chronic hypertension affecting Status: Acute Category: Medical Code(s): O10.919 - Unspecified pre-existing hypertension complicating , unspecified trimester (2) Active labor at term Status: Acute Category: Medical (3) 38 weeks gestation of Status: Acute Category: Medical Code(s): Z3A.38 - 38 weeks gestation of
[2020-06-20 20:00] VITALS: BP 118/76; PULSE 85; RESP 18; O2SAT 98
[2020-06-21 04:57] VITALS: BP 120/70; PULSE 75; RESP 18; TEMP 36.7; O2SAT 99
--- NOTE | 2020-06-21 09:03 | HMH.ACPN2 ---
Internal Medicine - PN: Subj *Date: 06/21/20 *Time: 09:03 Exam Vital signs and Labs for Last 24 Hours: Temp Pulse Resp BP Pulse Ox 98.0 F 75 18 120/70 99 06/21/20 04:57 06/21/20 04:57 06/21/20 04:57 06/21/20 04:57 06/21/20 04:57 I & O for Last 24 hours: Intake & Output 06/18/20 06/19/20 06/20/20 06/21/20 11:59 11:59 11:59 11:59 Weight 245 lb Assessment and Plan (1) Chronic hypertension affecting Status: Acute Category: Medical Code(s): O10.919 - Unspecified pre-existing hypertension complicating , unspecified trimester (2) Active labor at term Status: Acute Category: Medical (3) 38 weeks gestation of Status: Acute Category: Medical Code(s): Z3A.38 - 38 weeks gestation of
--- NOTE | 2020-06-21 09:20 | HMH.ACPN2 ---
Internal Medicine - PN: Subj *Date: 06/21/20 *Time: 09:21 (This is day #2. The patient is afebrile. Vital signs stable. Blood pressure in the 110s over 70s on labetalol 200 mg twice daily (p.o.). Lochia is normal. Uterine fundus is involuting well. Perineum healing well. Bottlefeeding. Baby doing well and has been circumcised. The patient will be discharged today.) Exam Vital signs and Labs for Last 24 Hours: Temp Pulse Resp BP Pulse Ox 98.0 F 75 18 120/70 99 06/21/20 04:57 06/21/20 04:57 06/21/20 04:57 06/21/20 04:57 06/21/20 04:57 I & O for Last 24 hours: Intake & Output 06/18/20 06/19/20 06/20/20 06/21/20 11:59 11:59 11:59 11:59 Weight 245 lb Assessment and Plan (1) Chronic hypertension affecting Status: Acute Category: Medical Code(s): O10.919 - Unspecified pre-existing hypertension complicating , unspecified trimester (2) Active labor at term Status: Acute Category: Medical (3) 38 weeks gestation of Status: Acute Category: Medical Code(s): Z3A.38 - 38 weeks gestation of
--- NOTE | 2020-06-21 09:22 | HMH.DCSUM ---
General - General Admission date:: 06/19/20 Discharge date: 06/21/20 (30-year-old 3, now para 2, AB 1 female admitted in active labor at 38 weeks of gestation. Her care had been complicated by mild hypertension, for which she had been on labetalol 200 mg twice daily. She delivered spontaneously, without complications. The baby was an 9/9, 6 pound 12 ounce infant, who is bottlefeeding, has been circumcised, and is done well. , the patient has done well. She is eating and ambulating, and has had a bowel movement. She had a first-degree perineal laceration, which is healing well. Her lochia is normal. Her uterine fundus is involuting well. Remains on labetalol 200 mg p.o. twice daily and her blood pressures have been in the 110s over 70s. DTRs are normal. her hemoglobin is 11.6 g. Discharged home on the second day on iron and vitamins, and on Tylenol and Motrin, as needed for pain. She is to continue her labetalol 200 mg p.o. twice daily at home. She is given appropriate instructions as to diet, exercise, and perineal care, and she is to return to Dr. Dubois's office in 3 weeks for follow-up. Her blood type is Rh+. Her rubella titer is immune.) Hospital Course Rhogam Administration: Not Indicated Objective Vital signs: Temp Pulse Resp BP Pulse Ox 98.0 F 75 18 120/70 99 06/21/20 04:57 06/21/20 04:57 06/21/20 04:57 06/21/20 04:57 06/21/20 04:57 DS: Diagnosis - Discharge Diagnosis (1) Chronic hypertension affecting Status: Acute (2) Active labor at term Status: Acute (3) 38 weeks gestation of Status: Acute Discharge Plan - Patient Discharge Instructions Additional Instructions: NO HEAVY LIFTING OR STRENUOUS ACTIVITY NOTHING IN VAGINA FOR [address]KS FOLLOW-UP WITH DR. ALEJO CALL HIS OFFICE ON MONDAY TO SETUP AN APPOINTMENT. Patient Instructions: Depression, Hemorrhage, DI for Labor and Delivery, Vaginal , DI for Pre-eclampsia, [facility] Post Discharge Instructions, Preventing the Spread of Coronavirus Discharge Instructions - Follow up Plan Home Medications: Home Medications Medication Instructions Recorded Confirmed Type levothyroxine 100 mcg tablet 100 mcg PO DAILY 11/18/19 06/19/20 History meloxicam 7.5 mg tablet 1 tab PO DAILYP PRN 11/18/19 06/20/20 History prenat.vits,dulce,bhe-obht-onerx 1 tab PO DAILY 11/18/19 06/19/20 History triamcinolone acetonide 0.1 % 1 cream TOPICAL DAILYP PRN 11/18/19 06/19/20 History topical cream Ferrous Sulfate 325 mg PO DAILY 05/29/20 06/19/20 History Labetalol HCl 200 mg PO BID 05/29/20 06/19/20 History Omeprazole 40 mg PO DAILY 05/29/20 06/19/20 History Aspirin 81 mg PO DAILY 06/19/20 06/19/20 History Prescriptions/Medication Reconciliation: No Action levothyroxine 100 mcg tablet 100 mcg PO DAILY meloxicam 7.5 mg tablet 1 tab PO DAILYP PRN PRN Reason: swelling triamcinolone acetonide 0.1 % topical cream 1 cream TOPICAL DAILYP PRN PRN Reason: spot on leg prenat.vits,dulce,kda-pyof-qefen 1 tab PO DAILY Omeprazole 40 mg PO DAILY Aspirin 81 mg PO DAILY Labetalol HCl 200 mg PO BID Ferrous Sulfate 325 mg PO DAILY - Problem Reconciliation Problems Reviewed?: Yes
== END 2020-06-21 13:30 | disposition home or self-care (01) | DRG 806 ==
LOC: OBOUT 12:46 → OB 12:46
PROVIDERS: Admitting Provider Obstetrics & Gynecology; PCP Internal Medicine Adolescent Medicine; Referring Provider Nurse Practitioner Obstetrics & Gynecology; Visit Provider Obstetrics & Gynecology
DX: O70.0 First degree perineal laceration during delivery (principal); O10.913 Unspecified pre-existing hypertension complicating pregnancy, third trimester; Z37.0 Single live birth; Z3A.38 38 weeks gestation of pregnancy; O69.81X0 Labor and delivery complicated by cord around neck, without compression, not applicable or unspecified; O99.283 Endocrine, nutritional and metabolic diseases complicating pregnancy, third trimester; E03.9 Hypothyroidism, unspecified
CPT/HCPCS: 59409; 59025; 80305; 81001; 85014; 85018; 85025; 86328; 86850; 96360

== ENCOUNTER → 2020-08-13 14:47 | Outpatient (CLI) | payer OTHER, SELFPAY ==
[2020-08-13 15:50] LABS: Basophils # 0.1 K/mm3 (0-0.2); Basophils % 0.9 % (0.1-2.0); Eosinophils # 0.2 K/mm3 (0.0-0.4); Eosinophils % 3.1 % (0.1-12.0); Hematocrit 41.2 % (37.0-47.0); Hemoglobin 13.6 g/dL (12.2-16.2); Lymphocytes # 1.4 K/mm3 (0.7-4.5); Mean Corpuscular HGB Conc 32.9 g/dL (31.8-35.4); Mean Corpuscular Hemoglobin 30.5 pg (27.0-31.2); Mean Corpuscular Volume 92.6 fl (81-99); Monocytes # 0.4 K/mm3 (0.1-1.0); Monocytes % 5.5 % (1.7-9.3); Neutrophils # 4.7 K/mm3 (1.8-7.8); Neutrophils % 69.6 % (37.0-80.0); Platelet Count 232 K/mm3 (142-424); Red Blood Count 4.45 M/mm3 (4.20-5.40); Red Cell Distribution Width 13.4 % (11.5-17.5); White Blood Count 6.7 K/mm3 (4.8-10.8)
[2020-08-13 17:12] LABS: Alanine Aminotransferase 35 U/L (12-78); Albumin Level 4.6 g/dl (3.5-5.0); Albumin/Globulin Ratio 1.5 (1.1-1.8); Alkaline Phosphatase 96 U/L (38-126); Anion Gap 11.6 mEq/L (5-15); Aspartate Amino Transferase 62 U/L (14-36); Bilirubin,Total 0.6 mg/dl (0.2-1.3); Blood Urea Nitrogen 14 mg/dl (7-17); Calcium 9.5 mg/dl (8.4-10.2); Carbon Dioxide 26 mmol/L (22.0-30.0); Chloride 106 mmol/L (98-107); Estimated Glomerular Filt Rate 73 ml/min (>60); GFR (African American) 88 ML/MIN (>60); Glucose 106 mg/dl (74-100); Potassium 3.6 mmoL/L (3.5-5.1); Sodium 140 mmol/L (136-145); Total Protein,Serum 7.6 g/dl (6.3-8.2)
[2020-08-13 17:29] LABS: Free T4 (Free Thyroxine) 0.98 ng/dl (0.78-2.19)
[2020-08-13 17:44] LABS: Thyroid Stimulating Hormone 3.81 uIU/mL (0.465-4.68)
[2020-08-13 18:14] LABS: 25-OH Vitamin D, Total 19.9 ng/mL (30-100)
== END ==
PROVIDERS: Visit Provider Nurse Practitioner Family
DX: O13.5 Gestational [pregnancy-induced] hypertension without significant proteinuria, complicating the puerperium (principal); E03.9 Hypothyroidism, unspecified; E55.9 Vitamin D deficiency, unspecified
CPT/HCPCS: 36415; 80053; 82306; 84439; 84443; 85025

== ENCOUNTER → 2021-04-05 12:26 | Outpatient (CLI) | payer OTHER, SELFPAY ==
[2021-04-05 13:21] LABS: Basophils # 0.1 K/mm3 (0-0.2); Basophils % 0.8 % (0.1-2.0); Eosinophils # 0.3 K/mm3 (0.0-0.4); Eosinophils % 3.7 % (0.1-12.0); Hematocrit 43.8 % (37.0-47.0); Lymphocytes # 1.5 K/mm3 (0.7-4.5); Lymphocytes % 22.7 % (10-50); Mean Corpuscular HGB Conc 31.9 g/dL (31.8-35.4); Mean Corpuscular Hemoglobin 28.7 pg (27.0-31.2); Mean Corpuscular Volume 89.8 fl (81-99); Mean Platelet Volume 8.2 fl (7.4-10.4); Monocytes # 0.4 K/mm3 (0.1-1.0); Monocytes % 5.4 % (1.7-9.3); Neutrophils # 4.5 K/mm3 (1.8-7.8); Neutrophils % 67.4 % (37.0-80.0); Platelet Count 240 K/mm3 (142-424); Red Blood Count 4.88 M/mm3 (4.20-5.40); Red Cell Distribution Width 13.3 % (11.5-17.5); White Blood Count 6.6 K/mm3 (4.8-10.8)
[2021-04-05 13:33] LABS: Alanine Aminotransferase 18 U/L (12-78); Albumin/Globulin Ratio 1.3 (1.1-1.8); Alkaline Phosphatase 113 U/L (38-126); Anion Gap 11.9 mEq/L (5-15); Aspartate Amino Transferase 28 U/L (14-36); Bilirubin,Total 0.6 mg/dl (0.2-1.3); Blood Urea Nitrogen 8 mg/dl (7-17); Calcium 9.1 mg/dl (8.4-10.2); Carbon Dioxide 28 mmol/L (22.0-30.0); Chloride 106 mmol/L (98-107); Chol/HDL Ratio 3.4 (1-3.5); Cholesterol 177 mg/dl (140-200); Estimated Glomerular Filt Rate 96 ml/min (>60); GFR (African American) 117 ML/MIN (>60); Globulin 3.1 g/dL (1.3-3.2); Glucose 87 mg/dl (74-100); HDL Cholesterol 52 mg/dl (40-60); Potassium 3.9 mmoL/L (3.5-5.1); Sodium 142 mmol/L (136-145); Total Protein,Serum 7.1 g/dl (6.3-8.2); Triglycerides 364 mg/dl (30-150); VLDL Cholesterol 73 mg/dL (0-40)
[2021-04-05 13:44] LABS: Direct LDL Cholesterol 59.69 mg/dL (100-129)
[2021-04-05 13:48] LABS: Free T4 (Free Thyroxine) 1.05 ng/dl (0.78-2.19)
[2021-04-05 13:49] LABS: 25-OH Vitamin D, Total 37.3 ng/mL (30-100)
== END ==
PROVIDERS: Visit Provider Nurse Practitioner Family
DX: I10 Essential (primary) hypertension (principal); E03.9 Hypothyroidism, unspecified; E55.9 Vitamin D deficiency, unspecified; R53.81 Other malaise
CPT/HCPCS: 36415; 80053; 80061; 82306; 84439; 84443; 85025

== ENCOUNTER 2021-07-29 10:48 | Emergency (ER) | payer OTHER, SELFPAY ==
[2021-07-29 11:12] VITALS: BP 141/88; PULSE 67; RESP 18; TEMP 36.6; O2SAT 97; BMI 40.1
--- NOTE | 2021-07-29 11:53 | HMH.EDUTC ---
[facility] [place] Clinical Impression: Nausea Diarrhea Qualifiers: Diarrhea type: unspecified type Qualified Code(s): R19.7 - Diarrhea, unspecified Disposition: Home, Self-Care Condition on Discharge: Good Instructions: Diarrhea, Nausea and Vomiting-Adult Additional Instructions: Drink extra fluids with and between meals. If you have difficulty drinking, try very small amounts of water or suck on ice chips. ? Avoid fruit juices, as these do not replace minerals and can actually increase diarrhea. ? Children and adults can use sports drinks to replenish electrolytes. Younger children and infants should use products formulated for children, like oral rehydration solutions. ? Eat food in small amounts and let your stomach recover. ? Get lots of rest. You may feel tired or weak. ? No greasy or fried foods for the next 24-48 hours BRAT diet Bananas Rice Apples and [place] ? Make sure to drink plenty of liquids ? Return if needed ? Straight to ER if any life threatening symptoms ? Zofran as prescribed ? You was given an outpatient order for diarrhea panel, please collect specimen and bring back to outpatient lab then call back to the [facility] or follow up with family doctor for results ? Follow up with family doctor in the next 48-72 hours if no improvement or any worsening of symptoms Prescriptions: Dicyclomine HCl [Bentyl 10mg capsule] 10 mg PO TID PRN #15 cap PRN Reason: Cramping Transmission Status: Received by [facility] Ondansetron [Zofran 4mg ODT] 4 mg PO TIDP PRN #6 tab PRN Reason: Nausea Transmission Status: Received by [facility] Referrals: Dane Jimenes MD [Primary Care Provider] - As needed Forms: Work/School Release Time of Disposition: 12:47 Medical Decision Making - Rolando Inquiry Pt receiving controlled substance: No Rolando was queried for this patient: No Vital Signs: 07/29/21 11:12 07/29/21 12:55 Temperature 98 F 98 F Temperature Source Oral Pulse Rate 67 Pulse Rate [Left] 67 Respiratory Rate 18 18 Blood Pressure 141/88 H Blood Pressure [Right Arm] 141/88 H Blood Pressure Mean [Right Arm] 105 02 Sat by Pulse Oximetry 97 - Lab Data Lab results reviewed: Yes: I reviewed the patient's lab results. Lab Results 07/29/21 11:57: [facility] Negative Orders (Tests/Meds): ED MEDICATIONS Discontinued Medications Generic Name Dose Route Start Last Admin Trade Name Vamsi PRN Reason Stop Dose Admin Dicyclomine HCl 10 mg 07/29/21 12:35 07/29/21 12:36 Dicyclomine 10mg Capsule PO 07/29/21 12:36 10 mg ONCE ONE Administration Ondansetron HCl 4 mg 07/29/21 12:35 07/29/21 12:36 Ondansetron 4mg Odt SL 07/29/21 12:36 4 mg ONCE ONE Administration Medical Decision Narrative: Patient states that medication helped with nausea and cramping [facility] [place] HPI - General Stated complaint: stomach weaknes, upper back pain Time Seen by Provider: 07/29/21 11:53 Mode of Arrival: Ambulatory Source of Information: Patient Limitations: No Limitations Description of Symptoms (Recalled from Triage Doc. by RN): pt c/o abd cramping, diarrhea, weakness, and upper back pain x4 days. HEENT Symptoms (Recalled from RN notes): No Resp Symptoms (Recalled from RN notes): No Skin Symptoms (Recalled from RN notes): No MS Symptoms (Recalled from RN notes): Yes Functional Status (Recalled from RN notes): wnl - History of Present Illness Provider Complaint: Patient states that she has been having nausea and diarrhea since Monday States that she is still having diarrhea and cramping on and off States that last night she was having some cramping and diarrhea and felt like she was having pain in her mid upper back when she was laying down but this morning it is gone and she is no longer having that pain but still having upset stomach so she came in - Related Data Home Medications Medication Instructions Recorded Confirmed levothyroxine 100 mc
[2021-07-29 12:21] LABS: UTC Pregnancy Test, Urine Negative (Negative)
[2021-07-29 12:55] VITALS: BP 141/88; PULSE 67; RESP 18; TEMP 36.6
== END 2021-07-29 12:57 | disposition home or self-care (01) ==
PROVIDERS: Emergency Provider Nurse Practitioner; PCP Internal Medicine Adolescent Medicine
DX: R11.0 Nausea (principal); K21.9 Gastro-esophageal reflux disease without esophagitis; I10 Essential (primary) hypertension; E03.9 Hypothyroidism, unspecified; R19.7 Diarrhea, unspecified; R10.9 Unspecified abdominal pain
CPT/HCPCS: 81025; 99202; G0463

== ENCOUNTER → 2021-10-06 10:21 | Outpatient (CLI) | payer BC, SELFPAY ==
[2021-10-06 11:16] LABS: Basophils # 0.1 K/mm3 (0-0.2); Basophils % 1.9 % (0.1-2.0); Eosinophils # 0.4 K/mm3 (0.0-0.4); Eosinophils % 7.5 % (0.1-12.0); Hematocrit 42.2 % (37.0-47.0); Hemoglobin 14.1 g/dL (12.2-16.2); Lymphocytes # 1.3 K/mm3 (0.7-4.5); Lymphocytes % 22.1 % (10-50); Mean Corpuscular HGB Conc 33.4 g/dL (31.8-35.4); Mean Corpuscular Hemoglobin 29.5 pg (27.0-31.2); Mean Corpuscular Volume 88.3 fl (81-99); Mean Platelet Volume 8.6 fl (7.4-10.4); Monocytes # 0.2 K/mm3 (0.1-1.0); Neutrophils # 3.8 K/mm3 (1.8-7.8); Neutrophils % 64.4 % (37.0-80.0); Platelet Count 323 K/mm3 (142-424); Red Blood Count 4.78 M/mm3 (4.20-5.40); Red Cell Distribution Width 14.1 % (11.5-17.5); White Blood Count 5.8 K/mm3 (4.8-10.8)
[2021-10-06 11:45] LABS: Chloride 103 mmol/L (98-107); Sodium 137 mmol/L (136-145)
[2021-10-06 11:46] LABS: Potassium 3.9 mmoL/L (3.5-5.1)
[2021-10-06 11:48] LABS: Alanine Aminotransferase 31 U/L (12-78); Albumin Level 3.8 g/dl (3.5-5.0); Albumin/Globulin Ratio 1.3 (1.1-1.8); Alkaline Phosphatase 147 U/L (38-126); Anion Gap 11.9 mEq/L (5-15); Aspartate Amino Transferase 35 U/L (14-36); Bilirubin,Total 0.6 mg/dl (0.2-1.3); Blood Urea Nitrogen 11 mg/dl (7-17); Calcium 8.5 mg/dl (8.4-10.2); Carbon Dioxide 26 mmol/L (22.0-30.0); Cholesterol 167 mg/dl (140-200); Estimated Glomerular Filt Rate 83 ml/min (>60); GFR (African American) 100 ML/MIN (>60); Globulin 2.9 g/dL (1.3-3.2); Glucose 88 mg/dl (74-100); Total Protein,Serum 6.7 g/dl (6.3-8.2)
[2021-10-06 11:49] LABS: Chol/HDL Ratio 4.3 (1-3.5); HDL Cholesterol 39 mg/dl (40-60)
[2021-10-06 12:02] LABS: Triglycerides 593 mg/dl (30-150)
[2021-10-06 12:13] LABS: 25-OH Vitamin D, Total 17.4 ng/mL (30-100); Free T4 (Free Thyroxine) 1.22 ng/dl (0.78-2.19)
[2021-10-06 12:19] LABS: Thyroid Stimulating Hormone 1.46 uIU/mL (0.465-4.68)
== END ==
PROVIDERS: Visit Provider Nurse Practitioner Family
DX: E03.9 Hypothyroidism, unspecified (principal); I10 Essential (primary) hypertension; E78.1 Pure hyperglyceridemia; E55.9 Vitamin D deficiency, unspecified
CPT/HCPCS: 36415; 80053; 80061; 82306; 84439; 84443; 85025

== ENCOUNTER → 2022-03-15 14:22 | Outpatient (CLI) | payer BC, SELFPAY ==
--- NOTE | 2022-03-15 14:27 | XR_ITS ---
FINAL REPORT CLINICAL HISTORY: LEFT FOOT PAIN FINDINGS: There is no acute fracture or dislocation. The joint spaces are intact. Posterior calcaneal spur. There is no soft tissue abnormality. IMPRESSION: No acute fracture Reviewed, Interpreted and Dictated by Aicha Helms MD Transcribed by Jv Campos Authenticated and [facility]
--- NOTE | 2022-03-15 14:27 | XR_ITS ---
FINAL REPORT CLINICAL HISTORY: LEFT LATERAL ANKLE PAIN FINDINGS: LEFT ANKLE: Three views of the left ankle were obtained. There is no acute fracture or dislocation. Posterior calcaneal spur. The joint spaces and mortise are intact. There is no soft tissue abnormality. IMPRESSION: No acute process. Reviewed, Interpreted and Dictated by Aicha Helms MD Transcribed by Jv Campos Authenticated and . [facility]
== END ==
PROVIDERS: PCP Nurse Practitioner Family; Visit Provider Nurse Practitioner Family
DX: M25.572 Pain in left ankle and joints of left foot (principal); M79.672 Pain in left foot
CPT/HCPCS: 73610; 73630

== ENCOUNTER 2022-09-29 16:31 | Emergency (ER) | payer OTHER, SELFPAY ==
[2022-09-29 16:32] VITALS: BP 148/98; PULSE 91; RESP 17; TEMP 36.9; O2SAT 97; BMI 40.7
--- NOTE | 2022-09-29 16:57 | EXP.UTC ---
Discharge Plan Disposition Patient Disposition: Home, Self-Care Condition: Good Prescriptions Prescriptions: New amoxicillin-pot clavulanate 875-125 mg Tablet 1 tab PO Q12H Qty: 20 0RF No Action levothyroxine 100 mcg tablet 100 mcg PO DAILY ergocalciferol (vitamin D2) 1,250 mcg (50,000 unit) capsule 50,000 unit PO metoprolol succinate 50 mg tablet extended release 24 hr 50 mg PO DAILY dicyclomine 10 MG capsule 10 mg PO TID PRN (Reason: Cramping) Qty: 15 0RF bupropion HCl 300 mg tablet extended release 24 hr 300 mg PO DAILY bupropion HCl 150 mg tablet extended release 24 hr 150 mg PO DAILY norgestimate-ethinyl estradiol [Estarylla] 0.25-35 mg-mcg tablet See Rx Instructions .ROUTE .COMPLEX Rx Instructions: TAKE ONE TABLET BY MOUTH ONCE A DAY omeprazole 40 mg capsule,delayed release(DR/EC) See Rx Instructions .ROUTE .COMPLEX Rx Instructions: TAKE ONE CAPSULE BY MOUTH ONCE A DAY escitalopram oxalate 10 mg tablet See Rx Instructions .ROUTE .COMPLEX Rx Instructions: TAKE ONE TABLET BY MOUTH ONCE A DAY Referrals Follow up/Referrals: Dona Baez APRN [Primary Care Provider] - See instructions Activity Restrictions/Add. Instructions Additional Instructions/Restrictions: Keep the wound clean and dry. Keep a dressing on it if you are going to be getting it dirty. Take antibiotic as directed. Stay out of water with your foot as much as possible. Watch the wound for signs of infection, such as redness, swelling, drainage, fever. etc. Take tylenol or ibuprofen for pain. Follow up with your regular doctor. Return in 10 days to have the sutures removed. GO TO THE ER FOR ANY WORSENING SYMPTOMS OR CONCERNS. Clinical Impressions Clinical Impression: Laceration of foot, right Instructions Patient Instructions: DI for Laceration Repair, DI for Laceration Repair -- Simple Discharge ED Provider: Dane Anthony [facility] General Stated complaint: ao 09/29 1500@home lac R Foot Mode of Arrival: Ambulatory Limitations: No Limitations Time Seen by Provider: 09/29/22 16:57 History of Present Illness Provider Complaint: pt c/o laceration to right bottom foot near her third toe. pt reports he was walking through her yard when a stick caught her sandal and punctured her foot. Related Data Home Medications Medication Instructions Recorded Confirmed levothyroxine 100 mcg tablet 100 mcg PO DAILY Hypothyroidism 11/18/19 09/29/22 ergocalciferol (vitamin D2) 1,250 50,000 unit PO 08/28/20 09/16/20 mcg (50,000 unit) capsule metoprolol succinate 50 mg 50 mg PO DAILY . 08/28/20 09/29/22 tablet,extended release 24 hr bupropion HCl 150 mg 24 hr tablet, 150 mg PO DAILY Depression 09/29/22 09/29/22 extended release bupropion HCl 300 mg 24 hr tablet, 300 mg PO DAILY Depression 09/29/22 09/29/22 extended release escitalopram oxalate 10 mg tablet See Rx Instructions .Route 09/29/22 09/29/22 .COMPLEX Depression norgestimate 0.25 mg-ethinyl See Rx Instructions .Route 09/29/22 09/29/22 estradiol 35 mcg tablet (Estarylla) .COMPLEX control omeprazole 40 mg capsule,delayed See Rx Instructions .Route 09/29/22 09/29/22 release .COMPLEX gerd Previous Rx's Medication Instructions Recorded dicyclomine 10 mg capsule 10 mg PO TID PRN Cramping #15 caps 07/29/21 amoxicillin 875 mg-potassium 1 tab PO Q12H #20 tabs 09/29/22 clavulanate 125 mg tablet Allergies Allergy/AdvReac Type Severity Reaction Status Date / Time oxycodone [From Percocet] Allergy Intermediate I-ITCHING Verified 09/29/22 17:03 [facility] Disclaimer: The information contained in this section may have been updated after the patient was seen, as this information can be updated by other users. Social History Smoking Status: Never smoker alcohol intake: never substance use type: denies
[2022-09-29 17:00] VITALS: BP 148/98; PULSE 91; RESP 17; TEMP 36.9; O2SAT 97; BMI 40.8
[2022-09-29 18:10] VITALS: BP 148/98; PULSE 91; RESP 20; TEMP 36.9; O2SAT 97
== END 2022-09-29 18:09 | disposition home or self-care (01) ==
LOC: ER 16:45 → UTC 16:54
PROVIDERS: Emergency Provider Nurse Practitioner Family; PCP Nurse Practitioner Family
DX: S91.311A Laceration without foreign body, right foot, initial encounter (principal); W26.8XXA Contact with other sharp object(s), not elsewhere classified, initial encounter
CPT/HCPCS: 12001; 90471; 90715; 99213; 99214; G0463

== ENCOUNTER → 2023-02-14 10:48 | Outpatient (CLI) | payer OTHER, SELFPAY | PROVIDERS: PCP Nurse Practitioner Family; Visit Provider Nurse Practitioner Obstetrics & Gynecology | DX: N93.8 Other specified abnormal uterine and vaginal bleeding (principal) | CPT/HCPCS: 76830 ==

== ENCOUNTER 2023-06-14 15:05 | Emergency (ER) | payer OTHER, SELFPAY ==
[2023-06-14 15:07] VITALS: BP 144/96; PULSE 108; RESP 18; TEMP 36.9; O2SAT 94; BMI 39.5
--- NOTE | 2023-06-14 15:27 | HMH.EDGENADL ---
Discharge Plan Disposition Patient Disposition: Home, Self-Care Prescriptions Prescriptions: New ondansetron 4 mg tablet,disintegrating 4 mg PO Q6H PRN (Reason: nausea and vomiting) 5 Days Qty: 20 0RF No Action levothyroxine 100 mcg tablet 100 mcg PO DAILY norgestimate-ethinyl estradiol [Estarylla] 0.25-35 mg-mcg tablet See Rx Instructions .ROUTE .COMPLEX Qty: 28 11RF Dose Instruction: TAKE ONE TABLET BY MOUTH ONCE A DAY Rx Instructions: TAKE ONE TABLET BY MOUTH ONCE A DAY bupropion HCl 300 mg tablet extended release 24 hr 300 mg PO DAILY omeprazole 40 mg capsule,delayed release(DR/EC) See Rx Instructions .ROUTE .COMPLEX Rx Instructions: TAKE ONE CAPSULE BY MOUTH ONCE A DAY Referrals Follow up/Referrals: Dona Baez APRN [Primary Care Provider] - See instructions Activity Restrictions/Add. Instructions Additional Instructions/Restrictions: Your symptoms are consistent with an early viral syndrome no obvious evidence of a serious bacterial infection or other emergent medical condition. Please take 800 mg of ibuprofen and 1000 mg of Tylenol 3 times a day as needed for body aches fevers. Nausea medicine has been prescribed return to the emergency department any significant worsening symptoms or other concerns. Clinical Impressions Clinical Impression: Acute viral syndrome, COVID-19 Discharge ED Provider: Linda Jaquez General Adult HPI General Chief complaint: PAIN Stated complaint: body aches , vomiting Time Seen by Provider: 06/14/23 15:22 Mode of Arrival: Ambulatory Source of Information: Patient Limitations: No Limitations Description of Symptoms (Recalled from ER Triage Doc. by RN): c/o of feeling cold then hot, hip pain, WATERS, sore to touch, back hurting, states this all started this morning after breakfast History of Present Illness HPI narrative: Is a previously healthy 33-year-old female who presents today with headache body aches and nausea with 1 episode of vomiting. States she felt fine this morning and then it hit her like a ton of bricks. She has had only 1 episode of nausea vomiting no diarrhea no significant pain in her abdomen or pelvis associated with this. No dysuria she does states she has diffuse myalgias and just is tender to the touch. No positive sick contacts that she is aware of. Denies any other underlying medical problems. Related Data Home Medications Medication Instructions Recorded Confirmed levothyroxine 100 mcg tablet 100 mcg PO DAILY Hypothyroidism 11/18/19 02/06/23 bupropion HCl 300 mg 24 hr tablet, 300 mg PO DAILY Depression 09/29/22 02/06/23 extended release omeprazole 40 mg capsule,delayed See Rx Instructions .Route 09/29/22 02/06/23 release .COMPLEX gerd Previous Rx's Medication Instructions Recorded norgestimate 0.25 mg-ethinyl See Rx Instructions .Route 02/21/23 estradiol 35 mcg tablet (Estarylla) .COMPLEX #28 tabs ondansetron 4 mg disintegrating 4 mg PO Q6H PRN nausea and 06/14/23 tablet vomiting 5 days #20 tabs Allergies Allergy/AdvReac Type Severity Reaction Status Date / Time oxycodone [From Percocet] Allergy Intermediate I-ITCHING Verified 02/06/23 14:51 [facility] Disclaimer: The information contained in this section may have been updated after the patient was seen, as this information can be updated by other users. Surgical History (Updated 02/06/23 @ 14:53 by Roselyn Vieira CMA) History of cholecystectomy Social History Smoking Status: Never smoker alcohol intake: never substance use type: denies use current occupational status: employed Travel in the last 8 weeks: None ROS Obtained: Yes All systems reviewed & no additional complaints except as documented Physical Exam General General appearance: alert Respiratory Respiratory exam: Present normal lung sounds bilaterally; Absent respiratory distress or wheezes Cardiovascular Cardiovascular exam: Present regular rate; Absent normal rhythm, bradycardia or tachycardia Abdominal Exam Abdominal exam: Present soft; Absent distention, tenderness or guarding Neurological Exam Neurological exam: Present alert and oriented X3 Medical Decision Making Rolando Inquiry Pt receiving controlled substance: No Vital Signs: 06/14/23 15:07 Temperature 98.5 F Temperature Source Oral Pulse Rate [Left Radial] 108 H Respiratory Rate 18 Blood Pressure [Right Arm] 144/96 H Blood Pressure Mean [Right Arm] 112 Blood Pressure Source [Right Arm] Automatic Cuff Blood Pressure Position [Right Arm] Sitting 02 Sat by Pulse Oximetry 94 L Oxygen Delivery Method Room Air Lab Data Lab results reviewed: Yes I reviewed the patient's lab results. Lab Results 06/14/23 15:15: SARS-CoV-2 (PCR) Detected A, Influenza A Untype (PCR) Not detected, Influenza Type B (PCR) Not detected Orders (Tests/Meds): ED MEDICATIONS Discontinued Medications Generic Name Dose Route Start Last Admin Trade Name Vamsi PRN Reason Stop Dose Admin Ibuprofen 600 mg 06/14/23 15:20 06/14/23 15:34 Ibuprofen 600 Mg Tablet PO 06/14/23 15:21 600 mg ONCE ONE Administration Ibuprofen 800 mg 06/14/23 15:26 06/14/23 15:33 Ibuprofen 400 Mg Tablet PO 06/14/23 15:27 Not Given ONCE ONE Ondansetron HCl 4 mg 06/14/23 15:26 06/14/23 15:34 Ondansetron 4mg Odt SL 06/14/23 15:27 4 mg ONCE ONE Administration ORDERS Category Date Time Status Rapid PCR Covid and Flu A/B Stat Lab 06/14/23 15:15 Received Medical Decision Narrative: Very healthy very well-appearing well-hydrated 33-year-old female presented today with what appears to be early viral symptoms. No focality to exam this is not consistent with a serious bacterial illness or any type of surgical pathology. Took Tylenol just prior to arrival will give ibuprofen and Zofran and reassess. COVID-19 test is positive supportive care patient not a candidate for antiviral therapy. Nausea medicine prescribed has been advised to take Tylenol and ibuprofen to treat her symptoms at home return precautions emphasized patient was tolerating p.o. and doing very well after ibuprofen and Zofran emergency department and was discharged in improved and stable condition Critical Care Critical Care Time Critical Care Time: No
[2023-06-14] MEDS: IBUPROFEN 600 MG TABLET PO (15:34)
[2023-06-14] MEDS: ONDANSETRON 4MG ODT 4 MG SL (15:34)
[2023-06-14 15:55] LABS: Influenza A, PCR Not Detected (NotDetected); Influenza B, PCR Not Detected (NotDetected)
[2023-06-14 16:31] LABS: Coronavirus 19, PCR Detected (NotDetected)
--- NOTE | 2023-06-14 16:40 | PC.NURSE ---
update , after pt okayed to update
--- NOTE | 2023-06-14 16:41 | PC.NURSE ---
pt able to hold down drink at this time
[2023-06-14 16:45] VITALS: BP 154/92; PULSE 104; RESP 20; TEMP 36.8; O2SAT 95
== END 2023-06-14 16:50 | disposition home or self-care (01) ==
PROVIDERS: Emergency Provider Student in an Organized Health Care Education/Training Program; PCP Nurse Practitioner Family
DX: U07.1 COVID-19 (principal); R51.9 Headache, unspecified; R11.2 Nausea with vomiting, unspecified
CPT/HCPCS: 87636; 99283

== ENCOUNTER 2023-10-16 08:15 | Outpatient (CLI) | payer OTHER, SELFPAY ==
--- NOTE | 2023-10-16 08:19 | US_ITS ---
FINAL REPORT TECHNIQUE: Multiple transverse and longitudinal images CLINICAL HISTORY: ELEVATED LIVER ENZYMES COMPARISON: None FINDINGS: The gallbladder has been surgically removed. No biliary ductal dilatation is appreciated. No fluid collections are seen. Limited portions of the right liver are remarkable for fatty infiltration. There is a hypoechoic lesion in the anterior liver near the right and left lobe junction of the liver measuring up to 19 mm in size. This is an atypical location for focal fatty sparing, and an underlying mass is suspected. Limited portions of the right kidney are unremarkable. IMPRESSION: Diffuse fatty infiltration of the liver, with a hypoechoic lesion as described measuring up to 19 mm in size. An underlying mass is suspected, and would recommend an MRI with contrast for further evaluation. Gallbladder has been surgically resected, and no evidence of biliary ductal dilatation is present. Reviewed, Interpreted and Dictated by Aicha Helms MD Transcribed by Jasmine Guerrero Authenticated and . [facility]
== END 2023-10-16 23:59 | disposition home or self-care (01) ==
LOC: RAD 08:16
PROVIDERS: PCP Nurse Practitioner Family; Visit Provider Nurse Practitioner Family
DX: R74.8 Abnormal levels of other serum enzymes (principal)
CPT/HCPCS: 76705

== ENCOUNTER 2023-11-06 07:25 | Outpatient (CLI) | payer OTHER, SELFPAY ==
--- NOTE | 2023-11-06 07:27 | MR_ITS ---
FINAL REPORT CLINICAL HISTORY: ELEVATED LIVER ENZYMES, LIVER MASS. abnormal us COMPARISON: Liver ultrasound dated 10/16/2023 FINDINGS: Multiplanar MR imaging of the abdomen was performed without and with contrast. Images are somewhat degraded by respiratory motion. Precontrast images demonstrate the liver to be homogeneous. A discrete mass is not identified. The gallbladder is not clearly seen. There is no evidence of significant intrahepatic ductal dilatation. Postcontrast images demonstrate no definite intrahepatic mass. Early phase imaging demonstrates a tiny focus of enhancement in the mid right lobe of the liver measuring 7 mm. This is well-seen on image 26 of series 15 and may represent a transhepatic attenuation difference. IMPRESSION: Tiny focus of enhancement in the mid right lobe of the liver may represent a transhepatic attenuation difference. Reviewed, Interpreted and Dictated by Bennett Hobbs MD Transcribed by Gisselle Humphrey Authenticated and [facility]
[2023-11-06] MEDS: GADOTERIDOL INJ 17ML SYRINGE 24 ML IV (08:26)
[2023-11-06] MEDS: SODIUM CHLORIDE 0.9% 50ML BAG 25 ML IV (08:27)
[2023-11-06] MEDS: SODIUM CHLORIDE 0.9% 10ML SYR (RAD ONLY) 10 ML IV (08:27)
== END 2023-11-06 23:59 | disposition home or self-care (01) ==
LOC: RAD 07:25
PROVIDERS: PCP Nurse Practitioner Family; Visit Provider Nurse Practitioner Family
DX: R16.0 Hepatomegaly, not elsewhere classified (principal); R74.8 Abnormal levels of other serum enzymes
CPT/HCPCS: 74183; A9576

== ENCOUNTER → 2023-12-29 08:38 | Outpatient (CLI) | payer OTHER, SELFPAY | LOC: SL 08:38 | PROVIDERS: PCP Nurse Practitioner Family; Visit Provider Nurse Practitioner Family | DX: G47.33 Obstructive sleep apnea (adult) (pediatric) (principal) | CPT/HCPCS: G0399 ==

== ENCOUNTER 2024-03-09 17:05 | Emergency (ER) | payer OTHER, SELFPAY ==
[2024-03-09 17:30] VITALS: BP 142/79; PULSE 96; RESP 16; TEMP 36.6; O2SAT 97; BMI 36.2
--- NOTE | 2024-03-09 17:35 | ED_ITS ---
Discharge Plan Disposition Patient Disposition: Home, Self-Care Condition: Good Prescriptions Prescriptions: New azithromycin [Zithromax] 250 mg tablet 250 mg PO UD DOSE PK Qty: 6 0RF Rx Instructions: Take two (2) tablets today, then one (1) tablet days #2 thru #5 benzonatate 100 mg capsule 100 mg PO TIDP PRN (Reason: Cough) Qty: 30 0RF methylprednisolone 4 mg Tablets,Dose Pack 4 mg PO DIRECTED 6 Days Qty: 21 0RF Rx Instructions: Take 1 pack as directed for 6 days No Action levothyroxine 100 mcg tablet 100 mcg PO DAILY lisinopril-hydrochlorothiazide 10-12.5 mg tablet 1 tab PO DAILY rosuvastatin 10 mg tablet 10 mg PO DAILY norgestimate-ethinyl estradiol [Estarylla] 0.25-35 mg-mcg tablet See Rx Instructions .ROUTE .COMPLEX Qty: 28 11RF Dose Instruction: TAKE ONE TABLET BY MOUTH ONCE A DAY Rx Instructions: TAKE ONE TABLET BY MOUTH ONCE A DAY peg 3350-electrolytes [GaviLyte-G] 236-22.74-6.74 -5.86 gram recon soln 240 ml PO Q10M Qty: 4000 0RF Rx Instructions: follow mailed instruction bupropion HCl 300 mg tablet extended release 24 hr 300 mg PO DAILY omeprazole 40 mg capsule,delayed release(DR/EC) See Rx Instructions .ROUTE .COMPLEX Rx Instructions: TAKE ONE CAPSULE BY MOUTH ONCE A DAY ondansetron 4 mg tablet,disintegrating 4 mg PO Q6H PRN (Reason: nausea and vomiting) 5 Days Qty: 20 0RF Referrals Follow up/Referrals: Flower Smith APRN [Primary Care Provider] - See instructions Activity Restrictions/Add. Instructions Additional Instructions/Restrictions: Drink plenty of fluids. Take tylenol or ibuprofen for pain or fever. Take the medications as directed. Follow up with your regular doctor. GO TO THE ER FOR ANY WORSENING SYMPTOMS Clinical Impressions Clinical Impression: Acute bronchitis, Pharyngitis Instructions Patient Instructions: Acute Bronchitis, DI for Acute Bronchitis Print Language Print Language: Slovak Discharge ED Provider: Dane Anthony [facility] [place] General Stated complaint: sore throat, WATERS cough Mode of Arrival: Ambulatory Source of Information: Patient Limitations: No Limitations Time Seen by Provider: 03/09/24 17:35 Description of Symptoms (Recalled from Triage Doc. by RN): Reports a headache, cough and sore throat. HEENT Symptoms (Recalled from RN notes): Yes Resp Symptoms (Recalled from RN notes): No Skin Symptoms (Recalled from RN notes): No MS Symptoms (Recalled from RN notes): No Functional Status (Recalled from RN notes): wnl Related Data Home Medications ?Medication ?Instructions ?Recorded ?Confirmed levothyroxine 100 mcg tablet 100 mcg PO DAILY Hypothyroidism 11/18/19 02/06/23 bupropion HCl 300 mg 24 hr tablet, 300 mg PO DAILY Depression 09/29/22 02/06/23 extended release omeprazole 40 mg capsule,delayed See Rx Instructions .Route 09/29/22 02/06/23 release .COMPLEX gerd lisinopril 10 1 tab PO DAILY 10/19/23 10/19/23 mg-hydrochlorothiazide 12.5 mg tablet rosuvastatin 10 mg tablet 10 mg PO DAILY 10/19/23 10/19/23 Previous Rx's ?Medication ?Instructions ?Recorded ondansetron 4 mg disintegrating 4 mg PO Q6H PRN nausea and 06/14/23 tablet vomiting 5 days #20 tabs norgestimate 0.25 mg-ethinyl See Rx Instructions .Route 01/23/24 estradiol 35 mcg tablet (Estarylla) .COMPLEX #28 tabs peg 3350-electrolytes 236 240 ml PO Q10M bowel prep #4,000 mL 01/31/24 gram-22.74 gram-6.74 gram-5.86 gram solution (GaviLyte-G) azithromycin 250 mg tablet 250 mg PO UD DOSE PK #6 tabs 03/09/24 (Zithromax) benzonatate 100 mg capsule 100 mg PO TIDP PRN Cough #30 caps 03/09/24 methylprednisolone 4 mg tablets in 4 mg PO DIRECTED 6 days #21 tabs 03/09/24 a dose pack Allergies Allergy/AdvReac Type Severity Reaction Status Date / Time oxycodone [From Percocet] Allergy Intermediate I-ITCHING Verified 10/19/23 14:41 Worker's Comp Is this a Worker's Comp case?: No [facility] Disclaimer: The information contained in this section may have been updated after the patient was seen, as this information can be updated by other users. Medical History (Updated 03/09/24 @ 18:35 by Dane Anthony APRN) Acid reflux Hyperlipidemia Anxiety Depression High blood pressure Hypothyroidism Surgical History (Updated 10/19/23 @ 14:47 by DOM Fofana) History of cholecystectomy History of wisdom tooth extraction History of bilateral breast reduction surgery History of cholecystectomy Family History Grandmother Cancer Anemia Thyroid disorder Mother Anemia Coronary artery disease Diabetes Heart attack Hyperlipidemia Hypertension Brother Asthma Hyperlipidemia Social History (Updated 10/19/23 @ 14:48 by DOM Fofana) Smoking Status: Never smoker alcohol intake: never substance use type: denies use current occupational status: employed Travel in the last 8 weeks: None adopted: No caregiver/support person: Yes foster care: No ROS Obtained: Yes All systems reviewed & no additional complaints except as documented Constitutional Constitutional: Reports chills and Reports fever(s) Eyes Eyes: Denies eye discharge ENT Ears, Nose, Mouth, and Throat: Reports as per HPI Cardiovascular Cardiovascular: Denies chest pain Respiratory Respiratory: Denies chest congestion and Reports cough Gastrointestinal Gastrointestingal: Reports nausea; Denies abdominal pain, constipation, cramping, diarrhea or vomiting Musculoskeletal Musculoskeletal: Denies arthralgias Integumentary/Breasts Skin/Breast: Denies rash Neurologic Neurologic: Denies paresthesias Physical Exam General General appearance: alert and in no apparent distress Head Head exam: atraumatic, normocephalic and normal inspection Eye Eye exam: Present normal appearance, PERRL and EOMI ENT ENT exam: Present mucous membranes moist and normal external ear exam Expanded ENT Exam TM/Canal exam: Bilateral TM: erythema and bulging Nose exam: Absent sinus tenderness Mouth exam: Present normal external inspection; Absent drooling Teeth exam: Present normal inspection Throat exam: Present tonsillar erythema, tonsillomegaly and tonsillar exudate Neck Neck exam: Present normal inspection, full ROM and trachea midline; Absent tenderness, meningismus or lymphadenopathy Chest Chest inspection: Present normal inspection and symmetric chest wall rise; Absent tenderness Respiratory Respiratory exam: Present normal lung sounds bilaterally; Absent respiratory distress, wheezes, stridor or accessory muscle use Cardiovascular Cardiovascular exam: Present regular rate and normal rhythm; Absent systolic murmur or diastolic murmur Abdominal Exam Abdominal exam: Present soft and normal bowel sounds; Absent distention, tenderness, guarding, rebound or rigidity Extremities Exam Extremities exam: Present normal inspection and normal capillary refill; Absent calf tenderness Back Exam Back exam: Present normal inspection and full ROM; Absent tenderness, CVA tenderness (R) or CVA tenderness (L) Neurological Exam Neurological exam: Present alert, oriented X3 and CN II-XII intact Psychiatric Psychiatric exam: Present normal affect and normal mood Skin Skin exam: Present warm, dry, intact and normal color Medical Decision Making Medical Records Medical records reviewed: No I reviewed the patient's medical records. Screening: Per USPSTF and CDC recommendations, given the prevalence of disease in our region, it is our hospital?s policy to screen for HIV and viral Hepatitis for all patients aged 18 and over and those with ongoing risk factors. Rolando Inquiry Pt receiving controlled substance: No Vital Signs: 03/09/24 17:30 Temperature 97.9 F Temperature Source Oral Pulse Rate [Radial] 96 H Respiratory Rate 16 Blood Pressure [Right Arm] 142/79 H Blood Pressure Mean [Right Arm] 100 Blood Pressure Source [Right Arm] Automatic Cuff Blood Pressure Position [Right Arm] Sitting 02 Sat by Pulse Oximetry 97 Oxygen Delivery Method Room Air Lab Data Lab results reviewed: Yes I reviewed the patient's lab results.
[2024-03-09 17:36] LABS: UTC Strep Screen (Rapid) Negative (Negative)
[2024-03-09 18:53] VITALS: BP 142/79; PULSE 96; RESP 16; TEMP 36.6; O2SAT 97
== END 2024-03-09 18:54 | disposition home or self-care (01) ==
PROVIDERS: Emergency Provider Nurse Practitioner Family; PCP Nurse Practitioner Family
DX: J20.9 Acute bronchitis, unspecified (principal); J02.9 Acute pharyngitis, unspecified; R51.9 Headache, unspecified
CPT/HCPCS: 87880; 99212; 99214; G0463

== ENCOUNTER 2024-05-31 07:19 | Outpatient (CLI) | payer OTHER, SELFPAY ==
--- NOTE | 2024-05-31 07:23 | US_ITS ---
FINAL REPORT CLINICAL HISTORY: ELEVATED LIVER ENZYMES COMPARISON: 10/16/2023 FINDINGS: Sonographic images of the right upper quadrant were obtained. The pancreas is partially obscured. There is fatty infiltration of the liver. There is a persistent hypoechoic area seen in the anterior liver measuring 1.6 cm, was 1.9 cm on the prior exam. There is a new hypoechoic area in the posterior left lobe which may represent focal sparing of fatty infiltration. The common bile duct measures 5 mm. The right kidney is within normal limits. The patient is status post cholecystectomy. IMPRESSION: Fatty liver. Persistent hypoechoic area anterior liver of uncertain etiology. If indicated, liver MRI recommended. New hypoechoic area posterior left lobe. This could also be further evaluated with liver MRI. Reviewed, Interpreted and Dictated by Blaise Fisher III, MD Transcribed by Maria Fernanda Hoffman Authenticated and . [facility]
== END 2024-05-31 23:59 | disposition home or self-care (01) ==
LOC: RAD 07:20
PROVIDERS: PCP Nurse Practitioner Family; Visit Provider Nurse Practitioner Family
DX: R74.8 Abnormal levels of other serum enzymes (principal); R16.0 Hepatomegaly, not elsewhere classified
CPT/HCPCS: 76705

== ENCOUNTER 2025-02-21 11:47 | Outpatient (CLI) | payer OTHER, SELFPAY ==
--- OUTSIDE RECORDS SUMMARY | 2025-02-21 11:49 | XMS_ITS | Clinical Summary ---
Author Organization Healthcare Address [address] [place] [address] Care Team Providers Care Human Geography Faculty Member Name Role Phone Pcp, No Primary Care Provider Unavailabl e Social History Tobacco Use Types Packs/Day Years Used Date Smoking Tobacco: Never Assessed Comments Unknown Sex and Gender Information Value Date Recorded Sex Assigned at Not on file Legal Sex Female 9:47 AM EDT Gender Identity Not on file Sexual Orientation Not on file Last Filed Vital Signs Vital Sign Reading Time Taken Comments Blood Pressure - - Pulse - - Temperature - - Respiratory Rate - - Oxygen Saturation - - Inhaled Oxygen Concentration - - Weight 116 kg (255 lb 11.7 oz) 08/17/2024 10:14 AM EST Height 177.8 cm (5' 10 ) 08/17/2024 10:14 AM EST Body Mass Index 36.69 08/17/2024 10:14 AM EST Plan of Treatment Health Maintenance Due Date Last Done Comments [facility]-Depression Screening 1988 [facility]-HIV Screening 1988 [facility]-Hepatitis C Screening 1988 [facility]-Infant/Child/Adol SDOH Screenings 1988 [facility]-Obesity Intervention 02/02/1994 [facility]-Varicella Vaccines (1 of 2 - 13+ 2-dose series) 02/02/2001 [facility]- SDOH Screenings 02/02/2006 [facility]-Adult SDOH Screenings 02/02/2006 [facility]-Hepatitis A Vaccines (1 of 2 - Risk 2-dose series) 02/02/2007 [facility]-Pap Smear 02/02/2009 HPV Vaccines (1 - 3-dose SCD M series) 02/02/2015 [facility]-Cervical Cancer Screening 02/02/2018 [facility]-HPV/Cotest 02/02/2018 [facility]-ETQOT-50 Vaccine (2023- season) 2024 [facility]-Influenza Vaccine (#1) 2025 [facility]-DTaP,Tdap,and Td Vaccine s (3 - Td or Tdap) 09/29/2032 09/29/2022, 03/07/2003 [facility]-Zoster Vaccines (1 of 2) 02/02/2038 [facility]-Hepatitis B Vaccines Completed 001, 03/06/2000, 2000 [facility]-HIB Vaccines Aged Out No longer e ligible based on patient's age to complete this topic [facility]-IPV Vaccines Aged Out No longer e ligible based on patient's age to complete this topic [facility]-Pneumococcal Vaccine: Pediatrics (0 to 5 Years) and At-Risk Patients (6 to 49 Years) Aged Out No longer eligible b ased on patient's age to complete this topic [facility]-Rotavirus Vaccines Aged Out No lo nger eligible based on patient's age to complete this topic [facility] Care Teams Human Geography Faculty Member Relationship Specialty Start Date End Date [address], [place] [address] PCP - General Family Medicine 08/17/24
--- NOTE | 2025-02-21 11:57 | ECG_ITS ---
APPROVED REPORT Exam: Resting ECG HR:101 bpm ECG Measurements Heart Rate 101 AXES AL 151 P 41 QRSd 99 QRS 16 QT 363 T 16 QTc 421 Conclusion SINUS TACHYCARDIA O/w NORMAL ECG UNCONFIRMED REPORT Electronically signed by : Devin Beckett MD 02/22/2025 08:08:45
== END 2025-02-21 23:59 | disposition home or self-care (01) ==
LOC: RT 11:48
PROVIDERS: PCP Nurse Practitioner Family; Visit Provider Nurse Practitioner Family
DX: I49.1 Atrial premature depolarization (principal); R00.0 Tachycardia, unspecified; R94.31 Abnormal electrocardiogram [ECG] [EKG]
CPT/HCPCS: 93005; 93225; 93226